=== PATIENT | male | born 1935 | race Caucasian/White ===

== ENCOUNTER 2016-09-19 11:06 | Inpatient (IN) | payer MEDICARE, BC ==
[~2016-09-19] VITALS: Ht 182.9 cm; Wt 98.9 kg
[2016-09-19] VITALS (10 sets, daily range): BP systolic 145–203; BP diastolic 76–114; PULSE 64–72; RESP 15–20; TEMP 97.9–99; O2SAT 93–98
[~2016-09-19 11:06] MED LIST: OMPR20CCR PO; ONDA1TAB16 PO; TRAM50 PO; WELL200T PO
--- NOTE | 2016-09-19 13:03 | PD ---
HPI Chief Complaint: Fall Stated Complaint: FALL/EVAC Time Seen by Provider: 13:03 Travel History International Travel<30 days: No Contact w/Intl Traveler<30days: No Known affected area: No History of Present Illness HPI 81-year-old male with history of hypotension, recurring syncopal episodes, currently being followed by Dr. Best presents to emergency department for evaluation following a syncopal episode. Patient was outside walking his dog when he passed out. Denies any preceding symptoms. No chest pain or tightness. No difficulty breathing. He states he does recall the fall. He did hit his face on the ground. He reports moderate facial pain. No headache. No nausea or vomiting. No focal deficits or weakness. Patient has no other symptoms to report. Patient's primary care provider is Dr. Jyoti Kimble. History Social History Alcohol Use: Yes (MIX DRINKS, BEER SOCIALLY) Tobacco Use: No Allergies-Medications (Allergen,Severity, Reaction): Coded Allergies: Cipro (Verified Allergy, Mild, 02/07/12) Reported Meds & Prescriptions Reported Meds & Active Scripts Active Ultram (Tramadol HCl) 50 Mg Tab 1 Tab PO Q6HPRN Zofran Tab (Ondansetron HCl) 4 Mg Tab 4 Mg PO Q6HPRN Reported Prilosec 20 Mg Cap (Omeprazole) 20 Mg Capcr 20 Mg PO DAILY Wellbutrin Sr (Bupropion HCl) 200 Mg Tab 100 Mg PO DAILY Review of Systems Except as stated in HPI: all other systems reviewed are Neg Physical Exam Narrative GENERAL: Well-nourished, well-developed elderly male patient, in no acute distress SKIN: Warm and dry. 2 cm Laceration to the right eyebrow, abrasion to the right forehead and abrasion to the bridge of nose. HEAD: Normocephalic. EYES: No scleral icterus. No injection or drainage. EOMI. PERRL ENT: Mucosa pink and moist. No erythema or exudates. No uvular edema. No uvular , palatal, or tonsillar deviation. Airway patent. Nasal turbinates appear normal without nasal blood, purulent drainage or septal hematoma. NECK: Supple, trachea midline. No JVD or lymphadenopathy. Cervical collar is in place. CARDIOVASCULAR: Regular rate and rhythm without murmurs, gallops, or rubs. RESPIRATORY: Breath sounds clear throughout, equal bilaterally. No accessory muscle use. GASTROINTESTINAL: Abdomen soft, non-tender, nondistended. MUSCULOSKELETAL: No cyanosis, or edema. Equal strength bilateral extremities. Sensation intact distal extremities. NEUROLOGICAL: Awake and alert. Cranial nerves II through XII intact. Motor and sensory grossly within normal limits. Five out of 5 muscle strength in all muscle groups. Normal speech. BACK: Nontender without obvious deformity. No CVA tenderness. Data Data Last Documented VS Vital Signs Date Time Temp Pulse Resp B/P Pulse Ox O2 Delivery O2 Flow Rate FiO2 09/19/16 11:08 99.0 72 18 145/84 95 Room Air Orders Complete Blood Count With Diff (09/19/16 13:00) Prothrombin Time / Inr (Pt) (09/19/16 13:00) Act Partial Throm Time (Ptt) (09/19/16 13:00) Urinalysis - C+S If Indicated (09/19/16 13:00) Chest, Single Ap (09/19/16 13:00) Ct Brain W/O Iv Contrast(Rout) (09/19/16 13:00) Ct Cerv Spine W/O Contrast (09/19/16 13:00) Ct Facial Bones W/O Iv Cont (09/19/16 13:00) Electrocardiogram (09/19/16 13:00) Ckmb (Isoenzyme) Profile (09/19/16 13:00) Troponin I (09/19/16 13:00) Basic Metabolic Panel (Bmp) (09/19/16 13:00) Remove Cervical Collar (09/19/16 14:00) CKMB (09/19/16 13:15) CKMB% (09/19/16 13:15) Labs Laboratory Tests Test 09/19/16 13:15 White Blood Count 11.0 TH/MM3 Red Blood Count 4.32 MIL/MM3 Hemoglobin 12.6 GM/DL Hematocrit 37.3 % Mean Corpuscular Volume 86.5 FL Mean Corpuscular Hemoglobin 29.3 PG Mean Corpuscular Hemoglobin 33.8 % Concent Red Cell Distribution Width 15.1 % Platelet Count 157 TH/MM3 Mean Platelet Volume 7.3 FL Neutrophils (%) (Auto) 79.1 % Lymphocytes (%) (Auto) 13.4 % Monocytes (%) (Auto) 6.3 % Eosinophils (%) (Auto) 0.8 % Basophils (%) (Auto) 0.4 % Neutrophils # (Auto) 8.7 TH/MM3 Lymphocytes # (Auto) 1.5 TH/MM3 Monocytes # (Auto) 0.7 TH/MM3 Eosinophils # (Auto) 0.1 TH/MM3 Basophils # (Auto) 0.0 TH/MM3 CBC Comment DIFF FINAL Differential Comment Prothrombin Time 10.6 SEC Prothromb Time International 1.0 RATIO Ratio Activated Partial 22.6 SEC Thromboplast Time Sodium Level 139 MEQ/L Potassium Level 3.9 MEQ/L Chloride Level 105 MEQ/L Carbon Dioxide Level 27.1 MEQ/L Anion Gap 7 MEQ/L Blood Urea Nitrogen 25 MG/DL Creatinine 1.41 MG/DL Estimat Glomerular Filtration 48 ML/MIN Rate Random Glucose 90 MG/DL Calcium Level 8.9 MG/DL Total Creatine Kinase 101 U/L Troponin I LESS THAN 0.02 NG/ML MDM Medical Decision Making Medical Screen Exam Complete: Yes Emergency Medical Condition: Yes Medical Record Reviewed: Yes Differential Diagnosis Intracranial hemorrhage versus concussion versus laceration superficial versus deep versus facial fracture versus syncope versus near-syncope versus electrolyte abnormality versus ACS Narrative Course 81-year-old male presents to emergency department for evaluation following a probable syncopal episode. Patient has obvious trauma to his face. Cervical collar is in place. Workup is initiated in the triage area. Last [address] 09/19/16 1300 Signed Impressions: Service Date/Time: Monday, September 19, 2016 13:16 - CONCLUSION: 1. Bilateral nasal bone fractures without significant displacement. Owen Salgado MD Head CT 09/19/16 1300 Signed Impressions: Service Date/Time: Monday, September 19, 2016 13:16 - CONCLUSION: 1. Small amount of interhemispheric subdural hemorrhage without mass effect or midline shift. 2. Right nasal bone fracture. Owen Salgado MD Cervical Spine CT 09/19/16 1300 Signed Impressions: Service Date/Time: Monday, September 19, 2016 13:16 - CONCLUSION: 1. There are postsurgical changes in the upper cervical spine. The patient is post laminectomy at C2/3 and C3/4. 2. The C5-6 level is fused. 3. There are degenerative changes throughout the cervical spine. There is no fracture seen. Candido Becerra MD CT imaging of the facial bones shows bilateral nasal bone fractures without significant displacement. CT imaging of the brain shows small amount of interhemispheric subdural hemorrhage without mass effect or midline shift. A right nasal bone fracture is also identified. I discussed the patient with Dr. Littlejohn, she requests pt be admitted to medicine and consult to neurosurgery. I spoke with Dr. Cherry, pt will be admitted to service Diagnosis Primary Impression: Syncopal episodes Qualified Code: R55 - Syncope, unspecified syncope type Additional Impressions: Subdural hemorrhage Nasal bone fractures Qualified Code: S02.2XXA - Closed fracture of nasal bone, initial encounter Eyebrow laceration Qualified Code: S01.111A - Eyebrow laceration, right, initial encounter Admitting Information Admitting Physician Requests: Admit Condition: Stable Sandra Montilla Sep 19, 2016 13:03
--- NOTE | 2016-09-19 13:35 | RADRPT ---
EXAM DATE/TIME: 09/19/2016 13:16 [facility] COMPARISON: No previous studies available for comparison. INDICATIONS : Trauma. Trip and fall. RADIATION DOSE: 19.82 CTDIvol (mGy) MEDICAL HISTORY : None SURGICAL HISTORY : None. ENCOUNTER: Initial ACUITY: 1 day PAIN SCALE: 2/10 LOCATION: neck TECHNIQUE: Volumetric scanning of the cervical spine was performed. Multiplanar reconstructions in the sagittal, coronal and oblique axial planes were performed. Using automated exposure control and adjustment o f the mA and/or kV according to patient size, radiation dose was kept as low as reasonably achievable to obtain optimal diagnostic quality images. FINDINGS: Thin section axial imaging of the cervical spine was performed. Sagittal and coronal imaging demonstrate a mild anterolisthesis of C3 relative to C4. There are degen erative discs throughout the cervical spine. The C5-6 level is fused.. C1/2: No acute bony abnormality identified. C2/3: There is a degenerated disc with minimal disc bulge. There is advanced facet arthritis on the right. The patient is post laminectomy. The thecal space and foramina are adequate. C3/4: There is advanced facet arthritis bilaterally. There is mild bony foraminal narrowing on the left. Th e thecal space is adequate. The patient is post laminectomy. C4/5: There is a degenerated disc with mild osteophytic ridging from the vertebral endplates. The residual thecal space and foramina are adequate. There is mild facet arthritis bilaterally. C5/6: This level is fused. The thecal space and neural foramina are adequate. C6/7: There is a degenerated disc with mild osteophytic ridging. This effaces the ventral thecal sac. The r esidual thecal space and foramina are adequate. C7/T1: The thecal space and neural foramina are adequate. There is mild facet arthritis bilaterally. CONCLUSION: 1. There are postsurgical changes in the upper cervical spine. The patient is post laminectomy at C2/ 3 and C3/4. 2. The C5-6 level is fused. 3. There are degenerative changes throughout the cervical spine. There is no fracture seen. Candido Becerra MD on September 19, 2016 at 13:29 Board Certified Radiologist. This report was verified electronically.
--- NOTE | 2016-09-19 13:36 | RADRPT ---
EXAM DATE/TIME: 09/19/2016 13:16 [facility] COMPARISON: No previous studies available for comparison. INDICATIONS : Trauma. Trip and fall. RADIATION DOSE: 39.21 CTDIvol (mGy) MEDICAL HISTORY : None SURGICAL HISTORY : None. ENCOUNTER: Initial ACUITY: 1 day PAIN SCALE: 2/10 LOCATION: cranial TECHNIQUE: Multiple contiguous axial images were obtained of the head. Using automated exposure control and adj ustment of the mA and/or kV according to patient size, radiation dose was kept as low as reasonably a chievable to obtain optimal diagnostic quality images. FINDINGS: There is an interhemispheric subdural hematoma, mostly posteriorly where it measures about 3 mm in di ameter. There is a focal acute hemorrhage more anteriorly that is spherical and measures about 11 mm in diameter. No intraparenchymal hemorrhage is identified. There is no mass effect or midline shift. No hydrocephalus. No recent infarct. Right frontal scalp swelling. Right nasal bone fracture. CONCLUSION: 1. Small amount of interhemispheric subdural hemorrhage without mass effect or midline shift. 2. Right nasal bone fracture. Owen Salgado MD on September 19, 2016 at 13:26 Board Certified Radiologist. This report was verified electronically.
[2016-09-19 13:43] LABS: AUTOMATED NEUTROPHIL # 8.7 TH/MM3 (1.8-7.7); BASOPHIL % 0.4 % (0.0-2.0); EOSINOPHIL # 0.1 TH/MM3 (0-0.4); EOSINOPHIL % 0.8 % (0.0-4.0); HEMATOCRIT 37.3 % (39.0-51.0); HEMO FLAGS DIFF FINAL; LYMPH % 13.4 % (9.0-44.0); LYMPHOCYTE # 1.5 TH/MM3 (1.0-4.8); MEAN CELL VOLUME 86.5 FL (80.0-100.0); MEAN CORPUSCULAR HEMOGLOBIN 29.3 PG (27.0-34.0); MEAN CORPUSCULAR HGB CONC 33.8 % (32.0-36.0); MONO % 6.3 % (0.0-8.0); NEUT % 79.1 % (16.0-70.0); PLATELET COUNT 157 TH/MM3 (150-450); RED BLOOD COUNT 4.32 MIL/MM3 (4.50-5.90); RED CELL DISTRIBUTION WIDTH 15.1 % (11.6-17.2)
--- NOTE | 2016-09-19 13:43 | RADRPT ---
EXAM DATE/TIME: 09/19/2016 13:16 [facility] COMPARISON: No previous studies available for comparison. INDICATIONS : Trauma. Trip and fall. Laceration above right eye. RADIATION DOSE: 72.32 CTDIvol (mGy) MEDICAL HISTORY : None SURGICAL HISTORY : None. ENCOUNTER: Initial ACUITY: 1 day PAIN SCORE: 4/10 LOCATION: Right facial TECHNIQUE: Volumetric scanning of the facial bones was performed. Using automated exposure control and adjustme nt of the mA and/or kV according to patient size, radiation dose was kept as low as reasonably achiev able to obtain optimal diagnostic quality images. FINDINGS: Bilateral nasal bone fractures are identified without significant displacement. There is right fronta l scalp swelling and laceration. Both globes intact. No fluid in the paranasal sinuses. CONCLUSION: 1. Bilateral nasal bone fractures without significant displacement. Owen Salgado MD on September 19, 2016 at 13:37 Board Certified Radiologist. This report was verified electronically.
[2016-09-19 13:50] LABS: APTT (PATIENT) 22.6 SEC (24.3-30.1); PROTHROMBIN TIME - PATIENT 10.6 SEC (9.8-11.6)
[2016-09-19 13:57] LABS: ANION GAP 7 MEQ/L (5-15); BICARBONATE 27.1 MEQ/L (21.0-32.0); BLOOD UREA NITROGEN 25 MG/DL (7-18); CHLORIDE 105 MEQ/L (98-107); GLOMERULAR FILTRATION RATE 48 ML/MIN (>89); POTASSIUM 3.9 MEQ/L (3.5-5.1); SODIUM (NA) 139 MEQ/L (136-145)
[2016-09-19 14:01] LABS: CREATINE KINASE 101 U/L (39-308)
--- NOTE | 2016-09-19 14:28 | RADRPT ---
EXAM DATE/TIME: 09/19/2016 13:34 [facility] COMPARISON: No previous studies available for comparison. INDICATIONS : Syncopal episode & fall. Facial trauma. MEDICAL HISTORY : Gastroesophageal reflux disease. SURGICAL HISTORY : Appendectomy. Cholecystectomy. Hernia repair. ENCOUNTER: Initial ACUITY: 1 day PAIN SCORE: 0/10 LOCATION: chest FINDINGS: A single view of the chest demonstrates the lungs to be symmetrically aerated without evidence of mas s, infiltrate or effusion. Minimal linear scarring or atelectasis at the bases. The cardiomediastina l contours are mildly prominent. Osseous structures are intact. CONCLUSION: 1. Minimal basilar atelectasis or scarring. Heart size upper limits normal. Mildly tortuous aorta. Owen Salgado MD on September 19, 2016 at 14:26 Board Certified Radiologist. This report was verified electronically.
[2016-09-19] MEDS ORDERED: LIDOCAINE 1%/EPINEPHrine 1:100,000 SOLN 20 ML VIAL INFIL ONE (14:30)
--- NOTE | 2016-09-19 14:46 | PD ---
Physical Exam Narrative GENERAL: Well-nourished, well-developed patient. SKIN: Warm and dry. HEAD: Normocephalic, laceration noted to forehead EYES: No injection or drainage. ENT: No nasal drainage noted. NECK: Supple, trachea midline. CARDIOVASCULAR: Regular rate and rhythm RESPIRATORY: no increased effort. No accessory muscle use. NEUROLOGICAL: Awake and alert. moves all extremities. Normal speech. Data Data Last Documented VS Vital Signs Date Time Temp Pulse Resp B/P Pulse Ox O2 Delivery O2 Flow Rate FiO2 09/19/16 11:08 99.0 72 18 145/84 95 Room Air 201/100 on recheck without meds, usually low, will hold treatment for now and control pain Orders Complete Blood Count With Diff (09/19/16 13:00) Prothrombin Time / Inr (Pt) (09/19/16 13:00) Act Partial Throm Time (Ptt) (09/19/16 13:00) Urinalysis - C+S If Indicated (09/19/16 13:00) Chest, Single Ap (09/19/16 13:00) Ct Brain W/O Iv Contrast(Rout) (09/19/16 13:00) Ct Cerv Spine W/O Contrast (09/19/16 13:00) Ct Facial Bones W/O Iv Cont (09/19/16 13:00) Electrocardiogram (09/19/16 13:00) Ckmb (Isoenzyme) Profile (09/19/16 13:00) Troponin I (09/19/16 13:00) Basic Metabolic Panel (Bmp) (09/19/16 13:00) Remove Cervical Collar (09/19/16 14:00) CKMB (09/19/16 13:15) CKMB% (09/19/16 13:15) Admit Order (Ed Use Only) (09/19/16 14:12) Consult Neurosurgery (09/19/16 ) Labs Laboratory Tests Test 09/19/16 13:15 White Blood Count 11.0 TH/MM3 Red Blood Count 4.32 MIL/MM3 Hemoglobin 12.6 GM/DL Hematocrit 37.3 % Mean Corpuscular Volume 86.5 FL Mean Corpuscular Hemoglobin 29.3 PG Mean Corpuscular Hemoglobin 33.8 % Concent Red Cell Distribution Width 15.1 % Platelet Count 157 TH/MM3 Mean Platelet Volume 7.3 FL Neutrophils (%) (Auto) 79.1 % Lymphocytes (%) (Auto) 13.4 % Monocytes (%) (Auto) 6.3 % Eosinophils (%) (Auto) 0.8 % Basophils (%) (Auto) 0.4 % Neutrophils # (Auto) 8.7 TH/MM3 Lymphocytes # (Auto) 1.5 TH/MM3 Monocytes # (Auto) 0.7 TH/MM3 Eosinophils # (Auto) 0.1 TH/MM3 Basophils # (Auto) 0.0 TH/MM3 CBC Comment DIFF FINAL Differential Comment Prothrombin Time 10.6 SEC Prothromb Time International 1.0 RATIO Ratio Activated Partial 22.6 SEC Thromboplast Time Sodium Level 139 MEQ/L Potassium Level 3.9 MEQ/L Chloride Level 105 MEQ/L Carbon Dioxide Level 27.1 MEQ/L Anion Gap 7 MEQ/L Blood Urea Nitrogen 25 MG/DL Creatinine 1.41 MG/DL Estimat Glomerular Filtration 48 ML/MIN Rate Random Glucose 90 MG/DL Calcium Level 8.9 MG/DL Total Creatine Kinase 101 U/L Creatine Kinase MB 1.1 NG/ML Troponin I LESS THAN 0.02 NG/ML MDM Supervised Visit with MANNY: Yes Interpretation(s) CBC & BMP Diagram 09/19/16 13:15 Last [address] 09/19/16 1300 Signed Impressions: Service Date/Time: Monday, September 19, 2016 13:16 - CONCLUSION: 1. Bilateral nasal bone fractures without significant displacement. Owen Salgado MD Head CT 09/19/16 1300 Signed Impressions: Service Date/Time: Monday, September 19, 2016 13:16 - CONCLUSION: 1. Small amount of interhemispheric subdural hemorrhage without mass effect or midline shift. 2. Right nasal bone fracture. Owen Salgado MD Chest X-Ray 09/19/16 1300 Signed Impressions: Service Date/Time: Monday, September 19, 2016 13:34 - CONCLUSION: 1. Minimal basilar atelectasis or scarring. Heart size upper limits normal. Mildly tortuous aorta. Owen Salgado MD Cervical Spine CT 09/19/16 1300 Signed Impressions: Service Date/Time: Monday, September 19, 2016 13:16 - CONCLUSION: 1. There are postsurgical changes in the upper cervical spine. The patient is post laminectomy at C2/3 and C3/4. 2. The C5-6 level is fused. 3. There are degenerative changes throughout the cervical spine. There is no fracture seen. Candido Becerra MD Narrative Course I, Dr. gregory, have reviewed the advance practice practitioner's documentation and am in agreement, met with the patient face to face, made the diagnosis, and the medical decision making was done by me. *My assessment and Findings: 81-year-old male presents with fall today with frequent history of falls. His blood pressure is usually low and initially it was low with the ambulance team. He will have workup ordered to assess syncope and fall Workup shows subdural and neurosurgery was contacted. Patient's blood pressure will be monitored given it is usually low and questions discussed with family Diagnosis Primary Impression: Syncopal episodes Qualified Code: R55 - Syncope, unspecified syncope type Additional Impressions: Nasal bone fractures Qualified Code: S02.2XXA - Closed fracture of nasal bone, initial encounter Subdural hemorrhage Eyebrow laceration Qualified Code: S01.111A - Eyebrow laceration, right, initial encounter Admitting Information Admitting Physician Requests: Admit Condition: Stable Jocy Gregory MD Sep 19, 2016 14:46
[2016-09-19 14:47] LABS: CKMB 1.1 NG/ML (0.5-3.6)
--- NOTE | 2016-09-19 15:01 | PD.CONS ---
HPI Service Neurosurgery Consult Requested By ED Reason for Consult SDH Primary Care Physician Archie Gonzalez MD History of Present Illness 81 yr old presents with a hx of falls, balance difficulties, presents after a fall while walking the dog. He was taken to the ED by EMS. GCS is 15 with a forehead laceration. He is followed by neurology Dr Fam and cardiology Dr Gonzalez for orthostatic hypotension and hypoglycemia. Ct of the head showed a falcine SDH Meds fludrocortisone 0.1, 2 tabs BID, clonazepam 1 mg qhs, sertroline 100 daily, kdur 30 meq BID, Review of Systems Constitutional: DENIES: Diaphoretic episodes, Fatigue, Fever, Weight gain, Weight loss, Chills, Dizziness, Change in appetite, Night Sweats Endocrine: DENIES: Heat/cold intolerance, Polydipsia, Polyuria, Polyphagia Eyes: DENIES: Blurred vision, Diplopia, Eye inflammation, Eye pain, Vision loss , Photosensitivity, Double Vision Ears, nose, mouth, throat: DENIES: Tinnitus, Hearing loss, Vertigo, Nasal discharge, Oral lesions, Throat pain, Hoarseness, Ear Pain, Running Nose, Epistaxis, Sinus Pain, Toothache, Odynophagia Gastrointestinal: DENIES: Abdominal pain, Black stools, Bloody stools, Constipation, Diarrhea, Nausea, Vomiting, Difficulty Swallowing, Anorexia Musculoskeletal: COMPLAINS OF: Joint Swelling (left shaulder), Neck pain Neurologic: COMPLAINS OF: Poor Balance Psychiatric: COMPLAINS OF: Depression Past Family Social History Allergies: Coded Allergies: Cipro (Verified Allergy, Mild, 02/07/12) Past Medical History Chronic renal insufficiency Orthostatic hypotension Depression Hypokalemia Past Surgical History 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 Cholecystectomy Prostate surgery Hypoglycemia Sleep disorder Family History father had lung CA, mother had dementia Social History , quit tobacco rare etoh Physical Exam Vital Signs Vital Signs Date Time Temp Pulse Resp B/P Pulse Ox O2 Delivery O2 Flow Rate FiO2 09/19/16 14:19 Room Air 09/19/16 14:19 71 15 203/114 98 Room Air 09/19/16 11:08 99.0 72 18 145/84 95 Room Air Physical Exam Alert and oriented x 3, EOMI, face symmetric, voice intact, field grossly full, pupils small, forehead laceration,no santos sign, speech fluent Motor 5/5 in both upper and lower extremities, No sensory level, no tremor, no neglect, No spasticity, reflexes are present, no clonus, no Bustos, no Babinski Laboratory Laboratory Tests Test 09/19/16 13:15 White Blood Count 11.0 Red Blood Count 4.32 Hemoglobin 12.6 Hematocrit 37.3 Mean Corpuscular Volume 86.5 Mean Corpuscular Hemoglobin 29.3 Mean Corpuscular Hemoglobin 33.8 Concent Red Cell Distribution Width 15.1 Platelet Count 157 Mean Platelet Volume 7.3 Neutrophils (%) (Auto) 79.1 Lymphocytes (%) (Auto) 13.4 Monocytes (%) (Auto) 6.3 Eosinophils (%) (Auto) 0.8 Basophils (%) (Auto) 0.4 Neutrophils # (Auto) 8.7 Lymphocytes # (Auto) 1.5 Monocytes # (Auto) 0.7 Eosinophils # (Auto) 0.1 Basophils # (Auto) 0.0 CBC Comment DIFF FINAL Differential Comment Prothrombin Time 10.6 Prothromb Time International 1.0 Ratio Activated Partial 22.6 Thromboplast Time Sodium Level 139 Potassium Level 3.9 Chloride Level 105 Carbon Dioxide Level 27.1 Anion Gap 7 Blood Urea Nitrogen 25 Creatinine 1.41 Estimat Glomerular Filtration 48 Rate Random Glucose 90 Calcium Level 8.9 Total Creatine Kinase 101 Creatine Kinase MB 1.1 Troponin I LESS THAN 0.02 Result Diagram: 09/19/16 1315 09/19/16 1315 Imaging Last Impressions Maxillofacial CT 09/19/16 1300 Signed Impressions: Service Date/Time: Monday, September 19, 2016 13:16 - CONCLUSION: 1. Bilateral nasal bone fractures without significant displacement. Owen Salgado MD Head CT 09/19/16 1300 Signed Impressions: Service Date/Time: Monday, September 19, 2016 13:16 - CONCLUSION: 1. Small amount of interhemispheric subdural hemorrhage without mass effect or midline shift. 2. Right nasal bone fracture. Owen Salgado MD Chest X-Ray 09/19/16 1300 Signed Impressions: Service Date/Time: Monday, September 19, 2016 13:34 - CONCLUSION: 1. Minimal basilar atelectasis or scarring. Heart size upper limits normal. Mildly tortuous aorta. Owen Salgado MD Cervical Spine CT 09/19/16 1300 Signed Impressions: Service Date/Time: Monday, September 19, 2016 13:16 - CONCLUSION: 1. There are postsurgical changes in the upper cervical spine. The patient is post laminectomy at C2/3 and C3/4. 2. The C5-6 level is fused. 3. There are degenerative changes throughout the cervical spine. There is no fracture seen. Candido Becerra MD Assessment and Plan Diagnosis: (1) Subdural hemorrhage Plan: We will follow the evolution of the bleed radiologically and obtain a rehab consult. His is worried about his ability to function at home. He already has had outpatient rehab but is still falling. Neurology evaluation may be helpful.MRI of the brain and C spine could not be located in [facility]. OT/PT ordered. Anticoagulation is to be avoided until healing of the SDH is confirmed. Pedro Luis Herman Sep 19, 2016 15:01
--- NOTE | 2016-09-19 15:14 | PD ---
Physical Exam Time Seen by Provider: 15:13 Narrative I was asked by Dr. Moyer to perform a laceration repair to his patient's right eyebrow and nasal bridge. For further details regarding the patient's visit please see the physician's documentation. Data Data Last Documented VS Vital Signs Date Time Temp Pulse Resp B/P Pulse Ox O2 Delivery O2 Flow Rate FiO2 09/19/16 11:08 99.0 72 18 145/84 95 Room Air Orders Complete Blood Count With Diff (09/19/16 13:00) Prothrombin Time / Inr (Pt) (09/19/16 13:00) Act Partial Throm Time (Ptt) (09/19/16 13:00) Urinalysis - C+S If Indicated (09/19/16 13:00) Chest, Single Ap (09/19/16 13:00) Ct Brain W/O Iv Contrast(Rout) (09/19/16 13:00) Ct Cerv Spine W/O Contrast (09/19/16 13:00) Ct Facial Bones W/O Iv Cont (09/19/16 13:00) Electrocardiogram (09/19/16 13:00) Ckmb (Isoenzyme) Profile (09/19/16 13:00) Troponin I (09/19/16 13:00) Basic Metabolic Panel (Bmp) (09/19/16 13:00) Remove Cervical Collar (09/19/16 14:00) CKMB (09/19/16 13:15) CKMB% (09/19/16 13:15) Admit Order (Ed Use Only) (09/19/16 14:12) Consult Neurosurgery (09/19/16 ) Labs Laboratory Tests Test 09/19/16 13:15 White Blood Count 11.0 TH/MM3 Red Blood Count 4.32 MIL/MM3 Hemoglobin 12.6 GM/DL Hematocrit 37.3 % Mean Corpuscular Volume 86.5 FL Mean Corpuscular Hemoglobin 29.3 PG Mean Corpuscular Hemoglobin 33.8 % Concent Red Cell Distribution Width 15.1 % Platelet Count 157 TH/MM3 Mean Platelet Volume 7.3 FL Neutrophils (%) (Auto) 79.1 % Lymphocytes (%) (Auto) 13.4 % Monocytes (%) (Auto) 6.3 % Eosinophils (%) (Auto) 0.8 % Basophils (%) (Auto) 0.4 % Neutrophils # (Auto) 8.7 TH/MM3 Lymphocytes # (Auto) 1.5 TH/MM3 Monocytes # (Auto) 0.7 TH/MM3 Eosinophils # (Auto) 0.1 TH/MM3 Basophils # (Auto) 0.0 TH/MM3 CBC Comment DIFF FINAL Differential Comment Prothrombin Time 10.6 SEC Prothromb Time International 1.0 RATIO Ratio Activated Partial 22.6 SEC Thromboplast Time Sodium Level 139 MEQ/L Potassium Level 3.9 MEQ/L Chloride Level 105 MEQ/L Carbon Dioxide Level 27.1 MEQ/L Anion Gap 7 MEQ/L Blood Urea Nitrogen 25 MG/DL Creatinine 1.41 MG/DL Estimat Glomerular Filtration 48 ML/MIN Rate Random Glucose 90 MG/DL Calcium Level 8.9 MG/DL Total Creatine Kinase 101 U/L Creatine Kinase MB 1.1 NG/ML Troponin I LESS THAN 0.02 NG/ML MDM Supervised Visit with MANNY: No Procedures Procedure Narrative LACERATION LOCATION: Nasal bridge LENGTH: 1 cm NUMBER OF STITCHES/MACHO: 2 sutures REPAIR: The area of the laceration was prepped with Betadine and sterilely draped. The laceration was infiltrated with 1% lidocaine with epinephrine. The wound was copiously irrigated and explored without evidence of foreign body , tendon injury or neurovascular injury. The wound was closed using 6. 0 Ethilon. This was a single layer repair. A sterile dressing was applied. The patient was advised to keep the dressing clean and dry. Patient tolerated the procedure well. LACERATION LOCATION: Right eyebrow LENGTH: 3 cm NUMBER OF STITCHES/MACHO: 7 sutures REPAIR: The area of the laceration was prepped with Betadine and sterilely draped. The laceration was infiltrated with 1% lidocaine with epinephrine. The wound was copiously irrigated and explored without evidence of foreign body , tendon injury or neurovascular injury. The wound was closed using 6. 0 Ethilon. This was a single layer repair. A sterile dressing was applied. The patient was advised to keep the dressing clean and dry. Patient tolerated the procedure well. Diagnosis Primary Impression: Syncopal episodes Qualified Code: R55 - Syncope, unspecified syncope type Additional Impressions: Nasal bone fractures Qualified Code: S02.2XXA - Closed fracture of nasal bone, initial encounter Subdural hemorrhage Eyebrow laceration Qualified Code: S01.111A - Eyebrow laceration, right, initial encounter Condition: Stable Kizzy Calles Sep 19, 2016 15:14
[2016-09-19] MEDS ORDERED: ACETAMINOPHEN 650 MG SUPP PR PRN (15:15)
[2016-09-19] MEDS ORDERED: DOCUSATE SODIUM 100 MG CAP PO PRN (15:15)
[2016-09-19] MEDS ORDERED: ONDANSETRON HCL 4 MG/2 ML VIAL IVP PRN (15:15)
[2016-09-19] MEDS ORDERED: NALOXONE HCL 0.4 MG/ML AMP IV PRN (15:15)
[2016-09-19] MEDS ORDERED: MAGNESIUM HYDROXIDE SUSP 30 ML CUP PO PRN (15:15)
[2016-09-19] MEDS ORDERED: SODIUM CHLORIDE 0.9% FLUSH 5 ML FLUSH IVF PRN (15:15)
[2016-09-19] MEDS ORDERED: SODIUM CHLORIDE 0.9% FLUSH 5 ML FLUSH FLUSH PRN (15:15)
[2016-09-19] MEDS: SODIUM CHLOR 0.9% 1000 ML INJ 1,000 ML IV SCH (15:21)
[2016-09-19] MEDS ORDERED: FLUD.1 PO (15:39)
[2016-09-19] MEDS ORDERED: CLON1 PO (15:39)
[2016-09-19] MEDS ORDERED: SERT-129 PO (15:39)
[2016-09-19] MEDS ORDERED: K-TA10TA PO (15:39)
--- NOTE | 2016-09-19 16:15 | EKG ---
Date Performed: 09/19/2016 Time Performed: 13:50:56 PTAGE: 81 years EKG: Sinus rhythm NORMAL ECG NO PREVIOUS TRACING DOCTOR: Stephan Phelps Interpretating Date/Time 09/19/2016 16:12:37
--- NOTE | 2016-09-19 16:24 | HHI.HP ---
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 Patient was brought in after he had a witnessed syncopal episode and passed out while walking his dog. Patient fell face forward, hit his face on the ground. He knew he was about to pass out, denies any dizziness , no palpitations, no chest pain, no shortness of breath. The bystander who witnessed fall, noted patient first tripped and she offered assistance which he refused. Right after that he fell. According to who is providing most details, patient has had poor balance and syncope and has had extensive evaluation by Dr. Arnold villalobos and varicella. He has had a cold, ultrasound, Holter monitoring, stress. The only thing they can attribute to the falls was that patient was noted with orthostatic hypotension with minimal changes. Patient has been on Florinef. He has received outpatient rehabilitation for balancing problems, currently he is not getting any therapy. endorses that Saturday patient was feeling a little shaky but did go and walk the dog as he usually does. 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 Prior to surgery, patient was not able to walk. They were told that this was a defect and that he still did have some residual cyst in place. During the course of the emergency room evaluation, patient had imaging studies. Maxillofacial CT showed bilateral nasal bone fractures without significant displacement. CT of the head showed a small amount of interhemispheric subdural hemorrhage without mass effect or midline shift and right nasal fracture. Cervical spine CT showed postsurgical changes in the upper cervical spine with postlaminectomy at C2-C3 C3-C4. C5-C6 is fused. No fractures were noted. Laboratory workup was remarkable for elevated creatinine,this doesn't appeared to be not a new finding. GFR is 48. CBC unremarkable. Blood pressure was noted elevated, up to 190s. Telemetry monitoring shows sinus rhythm. Laceration to the bridge of the nose and the right eyebrow where suture. Patient has received Vasotec to control blood pressure. Dr. Herman has evaluated the patient and recommends serial CT scanning to monitor bleeding. Recommend neurology consultation as well. Patient is admitted for further evaluation and treatment (Margot Ramos) Review of Systems Constitutional: DENIES: Diaphoretic episodes, Fatigue, Fever, Weight gain, Weight loss, Chills, Dizziness, Change in appetite, Night Sweats Endocrine: DENIES: Heat/cold intolerance, Polydipsia, Polyuria, Polyphagia Eyes: DENIES: Blurred vision, Diplopia, Eye inflammation, Eye pain, Vision loss , Photosensitivity, Double Vision Ears, nose, mouth, throat: DENIES: Tinnitus, Hearing loss, Vertigo, Nasal discharge, Oral lesions, Throat pain, Hoarseness, Ear Pain, Running Nose, Epistaxis, Sinus Pain, Toothache, Odynophagia Respiratory: DENIES: Apneas, Cough, Snoring, Wheezing, Hemoptysis, Sputum production, Shortness of breath Cardiovascular: COMPLAINS OF: Syncope, DENIES: Chest pain, Palpitations, Dyspnea on Exertion, PND, Lower Extremity Edema, Orthopnea, Claudication Gastrointestinal: DENIES: Abdominal pain, Black stools, Bloody stools, Constipation, Diarrhea, Nausea, Vomiting, Difficulty Swallowing, Anorexia Genitourinary: DENIES: Sexual dysfunction, Urinary frequency, Urinary incontinence, Urgency, Hematuria, Dysuria, Nocturia, Penile Discharge, Testicular Pain, Testicular Swelling Musculoskeletal: DENIES: Joint pain, Muscle aches, Stiffness, Joint Swelling, Back pain, Neck pain Integumentary: DENIES: Abnormal pigmentation, Nail changes, Pruritus, Rash Hematologic/lymphatic: DENIES: Bruising, Lymphadenopathy Immunologic/allergic: DENIES: Eczema, Urticaria Neurologic: COMPLAINS OF: Abnormal gait, Poor Balance, DENIES: Headache, Localized weakness, Paresthesias, Seizures, Speech Problems, Tremor Psychiatric: DENIES: Anxiety, Confusion, Mood changes, Depression, Hallucinations, Agitation, Suicidal Ideation, Homicidal Ideation, Delusions ( Margot Ramos) Past Family Social History Past Medical History History of syncope, weakness, has had extensive workup done per Dr. Breen and Dr. Patricio. Tentative diagnosis has been postural hypotension, patient is on Florinef. Patient has undergone dialysis rehabilitation. 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 Surgery was in [facility] in 1974. Prior to surgery, patient was unable to ambulate. Hernia surgery TURP Cholecystectomy Appendectomy Reported Medications Reported Meds & Active Scripts Active Reported K-Tab (Potassium Chloride) 10 Meq Tab 30 Meq PO BID Sertraline (Sertraline HCl) 100 Mg Tab 100 Mg PO DAILY Klonopin (Clonazepam) 1 Mg Tab 1 Mg PO HS Fludrocortisone (Fludrocortisone Acetate) 0.1 Mg Tab 0.2 Mg PO BID (Margot Ramos) Allergies: Coded Allergies: Cipro (Verified Allergy, Mild, 02/07/12) Active Ordered Medications Inpatient Medications Acetaminophen (Tylenol Supp) 650 mg Q4H PRN MA PAIN SCALE 1 TO 10; Start at 15:15 Acetaminophen (Tylenol) 650 mg Q4H PRN PO TEMP > 100.4; Start 09/19/16 at 15:15 Clonazepam (KlonoPIN) 1 mg HS PO ; Start 09/19/16 at 21:00 Docusate Sodium (Colace) 100 mg BID PRN PO CONSTIPATION; Start 09/19/16 at 15:15 Enalaprilat (Vasotec Inj) 1.25 mg Q6H PRN IV PUSH SBP>160, DBP>90; Start at 15:15 Fludrocortisone Acetate (Florinef) 0.2 mg BID PO ; Start 09/19/16 at 21:00 IV Flush (NS Flush) 2 ml BID FLUSH ; Start 09/19/16 at 21:00 Lidocaine/ Epinephrine 10 ml 10 ml ONCE ONCE INFIL Last administered on t 14:36; Start 09/19/16 at 14:30; Stop 09/19/16 at 14:32; Status DC Magnesium Hydroxide (Milk Of Magnesia Liq) 30 ml DAILY PRN PO Severe Constipation; Start 09/19/16 at 15:15 Naloxone HCl (Narcan Inj) 0.4 mg UNSCH PRN IV SEE LABEL COMMENTS; Start at 15:15 Ondansetron HCl (Zofran Inj) 4 mg Q6H PRN IVP NAUSEA OR VOMITING; Start at 15:15 Pantoprazole Sodium (Protonix) 40 mg DAILY PO ; Start 09/20/16 at 09:00 Potassium Chloride (KCl) 30 meq BID PO ; Start 09/19/16 at 21:00 Sertraline HCl (Zoloft) 100 mg DAILY PO ; Start 09/20/16 at 09:00 Sodium Chloride (NS 1000 ml Inj) 1,000 ml @ 70 mls/hr [id number] IV Last administered on 09/19/16t 15:21; Start 09/19/16 at 15:01 Family History Mother and father both . Both parents with history of CAD. Father with history of CHF and lung cancer. Social History Patient is retired, used to work in [employer]. , 3 grown children. Drinks alcohol socially, quit smoking 22 years ago, no illegal drug use. (Margot Ramos) Physical Exam Vital Signs Vital Signs Date Time Temp Pulse Resp B/P Pulse Ox O2 Delivery O2 Flow Rate FiO2 09/19/16 15:00 64 17 195/89 98 Room Air 09/19/16 14:19 Room Air 09/19/16 14:19 71 15 203/114 98 Room Air 09/19/16 11:08 99.0 72 18 145/84 95 Room Air Physical Exam GENERAL: This is a well-nourished, well-developed patient, in no apparent distress. SKIN: Abrasions noted to nose, legs. HEAD: Right periorbital swelling and bruising, laceration to right eyebrow. Abrasion to forehead and bridge of nose. . Normocephalic. No temporal or scalp tenderness. EYES: Pupils equal round and reactive. Extraocular motions intact. No scleral icterus. No injection or drainage. ENT: Nose swelling noted. Nose without bleeding, purulent drainage or septal hematoma. Throat without erythema, tonsillar hypertrophy or exudate. Uvula midline. Airway patent. NECK: Trachea midline. No JVD or lymphadenopathy. Supple, nontender, no meningeal signs. CARDIOVASCULAR: Regular rate and rhythm without murmurs, gallops, or rubs. RESPIRATORY: Clear to auscultation. Breath sounds equal bilaterally. No wheezes , rales, or rhonchi. GASTROINTESTINAL: Abdomen soft, non-tender, nondistended. No hepato-splenomegaly , or palpable masses. No guarding. MUSCULOSKELETAL: Extremities without clubbing, cyanosis, or edema. No joint tenderness, effusion, or edema noted. No calf tenderness. Negative Homans sign bilaterally. NEUROLOGICAL: Awake, oriented x 3. No focal deficits. Answering questions appropriately. Speech clear. Gait not tested. Laboratory Laboratory Tests Test 09/19/16 13:15 White Blood Count 11.0 Red Blood Count 4.32 Hemoglobin 12.6 Hematocrit 37.3 Mean Corpuscular Volume 86.5 Mean Corpuscular Hemoglobin 29.3 Mean Corpuscular Hemoglobin 33.8 Concent Red Cell Distribution Width 15.1 Platelet Count 157 Mean Platelet Volume 7.3 Neutrophils (%) (Auto) 79.1 Lymphocytes (%) (Auto) 13.4 Monocytes (%) (Auto) 6.3 Eosinophils (%) (Auto) 0.8 Basophils (%) (Auto) 0.4 Neutrophils # (Auto) 8.7 Lymphocytes # (Auto) 1.5 Monocytes # (Auto) 0.7 Eosinophils # (Auto) 0.1 Basophils # (Auto) 0.0 CBC Comment DIFF FINAL Differential Comment Prothrombin Time 10.6 Prothromb Time International 1.0 Ratio Activated Partial 22.6 Thromboplast Time Sodium Level 139 Potassium Level 3.9 Chloride Level 105 Carbon Dioxide Level 27.1 Anion Gap 7 Blood Urea Nitrogen 25 Creatinine 1.41 Estimat Glomerular Filtration 48 Rate Random Glucose 90 Calcium Level 8.9 Total Creatine Kinase 101 Creatine Kinase MB 1.1 Troponin I LESS THAN 0.02 (Margot Ramos) Result Diagram: 09/19/16 1315 09/19/16 1315 Imaging Last Impressions Maxillofacial CT 09/19/16 1300 Signed Impressions: Service Date/Time: Monday, September 19, 2016 13:16 - CONCLUSION: 1. Bilateral nasal bone fractures without significant displacement. Owen Salgado MD Head CT 09/19/16 1300 Signed Impressions: Service Date/Time: Monday, September 19, 2016 13:16 - CONCLUSION: 1. Small amount of interhemispheric subdural hemorrhage without mass effect or midline shift. 2. Right nasal bone fracture. Owen Salgado MD Chest X-Ray 09/19/16 1300 Signed Impressions: Service Date/Time: Monday, September 19, 2016 13:34 - CONCLUSION: 1. Minimal basilar atelectasis or scarring. Heart size upper limits normal. Mildly tortuous aorta. Owen Salgado MD Cervical Spine CT 09/19/16 1300 Signed Impressions: Service Date/Time: Monday, September 19, 2016 13:16 - CONCLUSION: 1. There are postsurgical changes in the upper cervical spine. The patient is post laminectomy at C2/3 and C3/4. 2. The C5-6 level is fused. 3. There are degenerative changes throughout the cervical spine. There is no fracture seen. Candido Becerra MD (Margot Ramos) Assessment and Plan Problem List: (1) Subdural hemorrhage (2) Syncopal episodes (3) Uncontrolled hypertension (4) Eyebrow laceration (5) Nasal bone fractures (6) hx of prior brain surgery for benign tumor removal (7) CKD (chronic kidney disease) stage 3, GFR 30-59 ml/min (8) Postural hypotension Assessment and Plan Admit to Dr. Cherry 81 year old male with hx of syncope, postural hypotension admitted after having a syncopal episode while walking dog, evaluated in emergency room, CT findings of the small interhemispheric subdural hemorrhage without mass effect. Neurologically intact. -Patient will be admitted to the intensive care unit Neuro checks per protocol Neurosurgery consultation, has been evaluated, recommend serial CT to monitor bleeding Consult neurology as well as cardiology -Maintain on bedrest -Controlled blood pressure, keep systolic at 150 or less. Uncontrolled HTN. Blood pressure is usually low, history of posterior hypotension, on Florinef. -Control BP, keep at 150 or less -Vasotec PRN -If Blood rressure not controlled patient may need Cardene drip Chronic kidney disease stage III, patient unaware of history, appears stable Continue with hydration, BMP in the morning Prior history of brain cyst removal -Monitor Home medications reviewed, initiated as indicated Avoid anticoagulation, SCDs for DVT prophylaxis PPI for GI prophylaxis Plan of care has been discussed with the patient and , their questions have been answered in detail. Plan of care discussed with attending and registered nurse. Further management of the patient will be dependent on the hospital course This patient was seen by myself and Dr. Cherry, this H&P is written on his behalf (Margot Ramos) Assessment and Plan pt seen and examined as above with family at bedside in ER labs and rad data reviewed meds reviewd chart reviewed plan of care kelly ragsdale dw pt and family at bedside (Chace Cherry MD) Physician Certification 2 Midnight Certification Type: Admission for Inpatient Services Order for Inpatient Services The services are ordered in accordance with Medicare regulations or non- Medicare payer requirements, as applicable. In the case of services not specified as inpatient-only, they are appropriately provided as inpatient services in accordance with the 2-midnight benchmark. Estimated LOS (days): 2 2 days is the estimated time the patient will need to remain in the hospital, assuming treatment plan goals are met and no additional complications. Post-Hospital Plan: Not yet determined (Margot Ramos) Problem Qualifiers (1) Syncopal episodes: Qualified Code: R55 - Syncope, unspecified syncope type (2) Eyebrow laceration: Qualified Code: S01.111A - Eyebrow laceration, right, initial encounter (3) Nasal bone fractures: Qualified Code: S02.2XXA - Closed fracture of nasal bone, initial encounter Mragot Ramos Sep 19, 2016 16:24 Chace Cherry MD Sep 19, 2016 19:09
[2016-09-19] MEDS: ENALAPRILAT 1.25 MG/ML VIAL IV PUSH PRN (16:25)
[2016-09-19 17:55] LABS: BLOOD, URINE SMALL (NEG); COMMENT (UR) CULT NOT INDICATED; CULTURE IF INDICATED CULT NOT INDICATED; GLUCOSE,URINE NEG (NEG); KETONE, URINE NEG (NEG); MUCUS URINE FEW /lpf (OCC); NITRITE,URINE NEG (NEG); PH, URINE 6.5 (5.0-8.5); SQUAMOUS EPITHELIAL CELL URINE <1 /hpf (0-5); URINE COLOR YELLOW (YELLW/STRAW)
[2016-09-19] MEDS: POTASSIUM CHLORIDE 10 MEQ CONTROLLED RELEASE TAB PO SCH ×2 (20:18→20:43)
[2016-09-19] MEDS: SODIUM CHLORIDE 0.9% FLUSH 5 ML FLUSH FLUSH SCH (20:18)
[2016-09-19] MEDS: ACETAMINOPHEN 325 MG TAB PO PRN (20:18)
[2016-09-19] MEDS: clonazePAM 1 MG TAB PO SCH (20:18)
[2016-09-19] MEDS ORDERED: SODIUM CHLORIDE 0.9% FLUSH 5 ML FLUSH IVF SCH (21:00)
[2016-09-19] MEDS ORDERED: FLUDROCORTISONE ACETATE 0.1 MG TAB PO SCH ×2 (21:00)
[2016-09-19] MEDS ORDERED: CHLORHEXIDINE GLUCONATE 2 % 1 PACK (2 CLOTHS)(extra cloths) TOP PRN (21:00)
[2016-09-19] MEDS ORDERED: clonazePAM 1 MG TAB PO SCH (21:00)
[2016-09-20] VITALS (14 sets, daily range): BP systolic 137–186; BP diastolic 73–96; PULSE 63–78; RESP 15–26; TEMP 98.2–98.7; O2SAT 93–99
[2016-09-20] MEDS: CHLORHEXIDINE GLUCONATE 2 % 1 PACK (2 CLOTHS)(taper/protocol) TOP SCH (04:00)
[2016-09-20 05:06] LABS: AUTOMATED NEUTROPHIL # 6.6 TH/MM3 (1.8-7.7); BASOPHIL # 0.1 TH/MM3 (0-0.2); BASOPHIL % 0.6 % (0.0-2.0); EOSINOPHIL # 0.1 TH/MM3 (0-0.4); EOSINOPHIL % 1.4 % (0.0-4.0); HEMATOCRIT 33.4 % (39.0-51.0); LYMPH % 17.8 % (9.0-44.0); LYMPHOCYTE # 1.7 TH/MM3 (1.0-4.8); MEAN CELL VOLUME 86.7 FL (80.0-100.0); MEAN CORPUSCULAR HEMOGLOBIN 30.1 PG (27.0-34.0); MEAN CORPUSCULAR HGB CONC 34.7 % (32.0-36.0); MONO % 10.4 % (0.0-8.0); NEUT % 69.8 % (16.0-70.0); PLATELET COUNT 134 TH/MM3 (150-450); RED BLOOD COUNT 3.85 MIL/MM3 (4.50-5.90); WHITE BLOOD COUNT 9.5 TH/MM3 (4.0-11.0)
[2016-09-20] MEDS: SODIUM CHLOR 0.9% 1000 ML INJ 1,000 ML IV SCH (05:08)
[2016-09-20 05:15] LABS: HEMO FLAGS AUTO DIFF
[2016-09-20 05:22] LABS: BICARBONATE 27.1 MEQ/L (21.0-32.0); POTASSIUM 3.7 MEQ/L (3.5-5.1)
[2016-09-20] MEDS: ACETAMINOPHEN 325 MG TAB PO PRN ×3 (06:48→23:28)
--- NOTE | 2016-09-20 06:49 | RADRPT ---
EXAM DATE/TIME: 09/20/2016 06:31 [place] COMPARISON: CT BRAIN W/O CONTRAST, September 19, 2016, 13:16. INDICATIONS : Follow up bleed. RADIATION DOSE: 46.00 CTDIvol (mGy) MEDICAL HISTORY : None SURGICAL HISTORY : cyst removed from neck/spinal cord. ENCOUNTER: Subsequent ACUITY: 2 days PAIN SCALE: Non-responsive LOCATION: cranial TECHNIQUE: Multiple contiguous axial images were obtained of the head. Using automated exposure control and adj ustment of the mA and/or kV according to patient size, radiation dose was kept as low as reasonably a chievable to obtain optimal diagnostic quality images. FINDINGS: The inner hemispheric subdural hemorrhage is less pronounced on the current study. No new site of hem orrhage observe. Atrophy noted. Mild ventriculomegaly is stable. No mass or infarction. Paranasal sin uses and mastoid air cells are clear. Calvarium is intact. CONCLUSION: Improvement in the subdural interhemispheric blood. No new hemorrhage observe. Judd Sheets Jr., MD on September 20, 2016 at 6:45 Board Certified Radiologist. This report was verified electronically.
[2016-09-20] MEDS: ENALAPRILAT 1.25 MG/ML VIAL IV PUSH PRN ×2 (07:11→12:25)
[2016-09-20 07:23] LABS: BANDS 7 % (0-6); BASOPHILS 1 % (0-2); NEUTROPHIL # MANUAL DIFF 7.3 TH/MM3 (1.8-7.7); POLYS (SEG NEUTROPHILS) 70 % (16-70); WBC DIFF SAMPLE 100
[2016-09-20 07:24] LABS: PLATELET ESTIMATE SMEAR LOW (NORMAL); PLATELET MORPHOLOGY NORMAL (NORMAL); SCAN/DIFF FINAL DIFF MANUAL
--- NOTE | 2016-09-20 07:36 | HHI.NSPN ---
Subjective History Day1 after fall, falcine SDH, improved on Ct and on exam today. He is alert and ready to start rehab Vitals . Vital Signs Date Time Temp Pulse Resp B/P Pulse Ox O2 Delivery O2 Flow Rate FiO2 09/20/16 06:00 67 09/20/16 04:00 63 09/20/16 04:00 98.7 63 16 179/80 94 09/20/16 02:00 75 09/20/16 00:00 98.6 63 15 141/73 95 09/20/16 00:00 63 09/19/16 22:00 65 09/19/16 21:20 93 21 09/19/16 20:00 98.4 68 16 169/76 95 09/19/16 20:00 69 09/19/16 18:18 97 21 09/19/16 18:00 98.0 72 20 186/88 97 09/19/16 17:10 68 16 171/93 98 Room Air 09/19/16 16:26 97.9 64 17 187/91 97 Room Air 09/19/16 15:00 64 17 195/89 98 Room Air 09/19/16 14:19 Room Air 09/19/16 14:19 71 15 203/114 98 Room Air 09/19/16 11:08 99.0 72 18 145/84 95 Room Air 09/19/16 09/19/16 09/20/16 15:00 23:00 07:00 Intake Total 751 ml 389 ml Output Total 600 ml Balance 751 ml -211 ml Physical Exam Head Head: Abrasions (facial ecchymosis) Eyes Eyes: Pupils Equal Neuro Mental Status: Oriented x 3 Speech: Clear Shanika Coma Scale Best Eye Openin - Spontaneous Best Verbal: 5 - Oriented Best Motor: 6 - Obeys Total Glascow Coma Scale (GCS): 15 Sensation: Intact Cardiac Cardiac: Regular Rate & Rhythm Musculoskeletal Extremities Upper Extremities Deltoid Bicep Tricep HI W. Ext Right Left Lower Extremeties Ilio Quad Plantar Dorsi EHL Right Left Musculoskeletal Remarks No drift, no focal weakness but poor dexterity; able to perform finger to nose and heel to armendariz bilaterally with good accuracy, no new weakness or numbness, no vertigo with sitting. No Bustos or Babinski sign, no clonus Objective Labs Last Impressions Maxillofacial CT 09/19/16 1300 Signed Impressions: Service Date/Time: Monday, September 19, 2016 13:16 - CONCLUSION: 1. Bilateral nasal bone fractures without significant displacement. Owen Salgado MD Head CT 09/19/16 1300 Signed Impressions: Service Date/Time: Monday, September 19, 2016 13:16 - CONCLUSION: 1. Small amount of interhemispheric subdural hemorrhage without mass effect or midline shift. 2. Right nasal bone fracture. Owen Salgado MD Chest X-Ray 09/19/16 1300 Signed Impressions: Service Date/Time: Monday, September 19, 2016 13:34 - CONCLUSION: 1. Minimal basilar atelectasis or scarring. Heart size upper limits normal. Mildly tortuous aorta. Owen Salgado MD Cervical Spine CT 09/19/16 1300 Signed Impressions: Service Date/Time: Monday, September 19, 2016 13:16 - CONCLUSION: 1. There are postsurgical changes in the upper cervical spine. The patient is post laminectomy at C2/3 and C3/4. 2. The C5-6 level is fused. 3. There are degenerative changes throughout the cervical spine. There is no fracture seen. Candido Becerra MD Laboratory Tests 09/19/16 13:15 09/20/16 04:00 09/20/16 04:08 Laboratory Tests Test 09/19/16 09/20/16 13:15 04:00 Sodium Level 139 MEQ/L 140 MEQ/L Potassium Level 3.9 MEQ/L 3.7 MEQ/L Chloride Level 105 MEQ/L 105 MEQ/L Carbon Dioxide Level 27.1 MEQ/L 27.1 MEQ/L Anion Gap 7 MEQ/L 8 MEQ/L Blood Urea Nitrogen 25 MG/DL 21 MG/DL Creatinine 1.41 MG/DL 1.10 MG/DL Estimat Glomerular Filtration 48 ML/MIN 65 ML/MIN Rate Random Glucose 90 MG/DL 88 MG/DL Calcium Level 8.9 MG/DL 8.5 MG/DL Phosphorus Level 2.1 MG/DL Magnesium Level 2.0 MG/DL Total Creatine Kinase 101 U/L Creatine Kinase MB 1.1 NG/ML Troponin I LESS THAN 0.02 NG/ML Assessment & Plan Diagnosis: (1) Subdural hemorrhage Plan: Head CT this am shows improved falcine SDH; His is worried about his ability to function at home. He already has had outpatient rehab but is still falling. Neurology evaluation may be helpful.MRI of the brain and C spine could not be located in [facility] and have been ordered for new baseline here at [place]. OT/PT ordered. Anticoagulation is to be avoided until healing of the SDH is confirmed. He can transfer to the floor. Critical Care Time (minutes): 10 Pedro Luis Herman Sep 20, 2016 07:36
[2016-09-20] MEDS: SERTRALINE HCL 100 MG TAB PO SCH (08:30)
[2016-09-20] MEDS: PANTOPRAZOLE SOD 40 MG DELAYED RELEASE TAB PO SCH (08:30)
[2016-09-20] MEDS: POTASSIUM CHLORIDE 10 MEQ CONTROLLED RELEASE TAB PO SCH ×4 (08:31→19:56)
[2016-09-20] MEDS: SODIUM CHLORIDE 0.9% FLUSH 5 ML FLUSH FLUSH SCH ×2 (08:31→19:56)
--- NOTE | 2016-09-20 08:34 | MB ---
cc: YOLI ROBERT M.D. DATE OF CONSULTATION 09/20/2016 REASON FOR CONSULTATION Status post fall with head trauma. HISTORY Mr. Godfrey is a 81-year-old white gentleman well-known to me with a history of chronic progressive orthostatic hypotension which has undergone successful treatment with Florinef. The patient was doing reasonably well from that standpoint up until yesterday when he was walking his dog and lost his balance. He recalls the entire episode and does not feel he lost consciousness, but he fell to the ground and hit his face and head. He was taken to the hospital and admitted and found to have a subdural hematoma. That has been stable since arrival yesterday. Neurosurgery is evaluating that. He otherwise denies any cardiovascular symptoms. He denies chest pains or shortness of breath. He has been taking all his medications as directed. MEDICATIONS 1. Protonix 40 mg daily 2. Zoloft 100 mg daily 3. Potassium supplements 30 mEq q12h 4. Tylenol p.r.n. 5. Fludrocortisone was discontinued since admit. He was on 0.2 mg p.o. b.i.d. at home with potassium supplements 30 mEq b.i.d. ALLERGIES NITROFURANTOIN, CIPRO, ASHIA. PAST MEDICAL HISTORY 1. Abdominal aortic aneurysm 2. low blood pressure and orthostatic hypotension 3. Chronic kidney disease 4. Headaches 5. Prostate disease 6. Vertigo 7. Neurocentric cyst 8. Denies history of myocardial infarction, heart failure, stroke, TIA, pulmonary, gastrointestinal, or liver disease. PAST SURGICAL HISTORY 1. Neurocentric cyst removed 2. Laminectomy January 1978 3. Appendectomy January 2000 4. Laparoscopic cholecystectomy December 2005. 5. Herniorrhaphy June 2009 6. TUR prostate 2011 FAMILY HISTORY Father of lung cancer and heart failure in 1997 at age 80. HISTORY OF PRESENT ILLNESS Mother with dementia and congestive heart failure at age 85. Sister age 68 with supranuclear palsy. SOCIAL HISTORY The patient and was a cigarette smoker one to two packs per week for 38 years, quit in 1993. Consumes one to two beers or whiskeys once a week. Denies any illicit drug use. living with his . Retired from the insurance industry. Tries to walk or go to physical therapy a few days a week for exercise. REVIEW OF SYSTEMS Denies lower extremity edema or claudication. Denies any actual syncope recently. Denies fevers, chills, night sweats, nausea, vomiting, diarrhea. Denies any exertional or resting chest discomfort, orthopnea or PND type symptoms. Denies bleeding or clotting disorders. Except for that mentioned in the HPI, this complete 12-point review of systems is otherwise negative. PHYSICAL EXAM Physical exam reveals a 81-year-old white gentleman lying in bed in no distress. VITAL SIGNS: Blood pressure 179/80 mmHg, heart rate 67 and regular, respiratory rate 16, temperature 98.7, oxygen saturation 94% on room air. HEAD: Head is normocephalic. There is ecchymosis noted over the forehead and right temporal regions and right eye. NECK: The neck is supple. There is no adenopathy. No jugular venous distension at 45 degrees. Carotid upstrokes are normal. There are no bruits. Thyroid exam is normal. LUNGS: Clear. HEART: PMI is not displaced. S1-S2 normal. No murmurs, gallops, clicks or rubs. ABDOMEN: Benign. EXTREMITIES: No cyanosis, clubbing or edema. Perfusion is adequate in the upper and lower extremities. There are no femoral bruits. EKG from admission yesterday shows a sinus rhythm and is within normal limits. Chest x-ray minimal basilar atelectasis or scarring. Heart size upper limits of normal. Mildly tortuous aorta. Head CT from this morning shows improvement in subdural interhemispheric blood. No new hemorrhage. LABORATORY DATA CBC, his white count 9.5, hemoglobin 11.6, platelet count 134,000. Chemistries are normal with a potassium 3.7, sodium 140, BUN 21, creatinine 1.1, magnesium is 2.0, calcium 8.5. Troponin I less than 0.02, CPK 101, CPK-MB 1.1. Coags were normal. IMPRESSION 1. Status post fall with head injury and subdural hematoma, currently stable. 2. History of progressive orthostatic hypotension. 3. Balance disorder. 4. History of AAA. 5. Family history of CAD. RECOMMENDATIONS From a cardiac standpoint, I think he just needs to be restarted on his Florinef 0.2 mg p.o. b.i.d. and his potassium supplements as he was taking at home. He was quite stable on that regimen. It is unclear whether he had an orthostatic episode yesterday or just a balance problem which he has also been experiencing. I discussed the case in detail with neurosurgery and plans are to transfer him to inpatient [facility] for a brief period of time before going back home. I will follow him with you as needed here. I thank you for allowing me to participate in the care of this patient. MD PILAR Wnag/MICHAEL /7:56 AM /8:14 AM ALEC
[2016-09-20] MEDS ORDERED: SERTRALINE HCL 100 MG TAB PO SCH (09:00)
[2016-09-20] MEDS ORDERED: cloNIDine HCL 0.1 MG TAB PO ONE (11:45)
--- NOTE | 2016-09-20 12:12 | RADRPT ---
EXAM DATE/TIME: 09/20/2016 11:38 [facility] COMPARISON: CT BRAIN W/O CONTRAST, September 19, 2016, 13:16. CT BRAIN W/O CONTRAST, September 20, 2016, 6:31. INDICATIONS : Frequent falls. MEDICAL HISTORY : Hypertension. Prostate disease. SURGICAL HISTORY : Cholecystectomy. Appendectomy. Hernia repair. Laminectomy. ENCOUNTER: Subsequent ACUITY: 2 day PAIN SCORE: 0/10 LOCATION: head. TECHNIQUE: Multiplanar, multisequence MRI of the brain was performed without contrast. FINDINGS: CEREBRUM: There is cerebral atrophy. The ventricles are normal for age. No evidence of midline shift, mass les ion, hemorrhage or acute infarction. No extraaxial fluid collections are seen. The pituitary gland and suprasellar cistern are normal in configuration. WHITE MATTER: A few scattered foci of bright T2 signal abnormalities are seen in the white matter. POSTERIOR FOSSA: The cerebellum and brainstem are intact. The 4th ventricle is midline. The cerebellopontine angle is unremarkable. The cerebellar tonsils are normal in position. DIFFUSION IMAGING: No focal areas of restricted diffusion are seen. No evidence of acute infarction. EXTRACRANIAL: The visualized portions of the orbits and paranasal sinuses are unremarkable. CONCLUSION: 1. Cerebral atrophy. 2. Minimal chronic ischemic small vessel vasculopathy. 3. The previously identified hemorrhage appears to have resolved. Angel Mcdonald MD on September 20, 2016 at 12:07 Board Certified Radiologist. This report was verified electronically.
--- NOTE | 2016-09-20 13:51 | MB ---
cc: DILLON BANUELOS M.D. DATE OF CONSULTATION 09/20/2016 REASON FOR CONSULTATION This is a 81-year-old man seen in neurological consultation in regards to a syncopal episode. HISTORY The patient was admitted yesterday when he was walking his dog and came to the emergency room around 01:00 p.m. He reportedly lost his balance or tripped on something and fell. He does not think he lost consciousness, but he is not quite aware of a couple of minimal events. Apparently someone witnessed the fall and asked to assist him, but he declined and he does not remember this. There is a history of some recent difficulty with balance and falls. He has a history of some sort of surgery in 1977. 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 He was told that it was an unusual cyst and it was not completely removed. He was followed by apparent neurosurgery with MRIs on multiple occasions. Apparently he had some recent imaging studies of the spine as well. He has a history of hypertension. MEDICATIONS His medications included: 1. Zoloft 100 mg a day 2. Potassium tablets 3. Clonazepam 4. Fludrocortisone 5. I believe he was also taking Vasotec. NEUROLOGICAL EXAM: The neurologic exam showed an alert, pleasant man. He is oriented. He feels he is ready to be discharged as he feels he does not belong here at this point. Ocular movements were full. Visual mello full. He has right frontal orbital bruising and stitching from this injury with some ecchymosis, but he is able to move the eyes normally and able to count fingers normally in all visual mello. His speech was clear. No aphasia. He has a good director radiation oncology and [id number] testing is normal. He moves the lower extremities well on the bedside exam. Reflexes are present at the elbows and knees, trace to absent at the ankles and plantar responses flexor. MRI of the brain and CT brain indicates a resolved small inter-hemisphere subdural hematoma. MRI of the cervical spine shows he is status post laminectomy around C2-C3 with cystic areas in the canal with minimal pressure on the spinal cord. It appears the MRI of the cervical spine was done without contrast and no results yet. ASSESSMENT Syncopal episode, presumably postural hypotension. Apparently he has had some problems with balance. I am going to check an EEG on him as well. A resolved inter-hemisphere subdural hematoma, small. Neurosurgery is following Cystic lesion C3 level. MRI cervical spine results pending. Neurosurgery following. Apparent recent MRI cervical spine done. He is followed elsewhere for this and this lesion does not appear unstable at this point. Therefore, we will request an EEG. No further indication of seizures. I will follow the neurological course. Thank you for asking us to assist in his care. MD CODY Martinez/MICHAEL /1:28 PM /1:40 PM
--- NOTE | 2016-09-20 14:34 | RADRPT ---
EXAM DATE/TIME: 09/20/2016 11:38 COMPARISON: [facility] [place] CERVICAL SPINE W/O CONTRAST, September 19, 2016, 13:16. Multiple previous outside comparison ex ams, most recently February 27, 2016 from [facility]. INDICATIONS : Pain after fall. MEDICAL HISTORY : Hypertension. Prostate disease. SURGICAL HISTORY : Cholecystectomy. Appendectomy. Hernia repair. Laminectomy. ENCOUNTER: Subsequent ACUITY: 2 day PAIN SCORE: 2/10 LOCATION: neck. TECHNIQUE: Multiplanar, multisequence MRI examination of the cervical spine was performed. FINDINGS: There is stable slight anterolisthesis of C3 relative to C4 and slight retrolisthesis of C4 relative to C5. C5 and 6 are fused. There is no evidence of fracture. Marrow signal is benign throughout. Prev ious laminectomies at C2, C3 and C4. Small dorsal pseudomeningocele which is unchanged just right of midline posterior to C2-3 disc space level. The C3 level, an ovoid CSF signal mass or collection abut s the midline ventral cervical cord. This lesion measures about 19 x 7 mm (long axis by short axis) a nd is unchanged. There is very slight stable deformity of the cord associated with this lesion. No ab normal intrinsic signal within the cord. The cord is elsewhere normal. There is broad mild dorsal disc protrusion at C3-4 with minimal indentation of the ventral thecal sac . Mild broad and slightly right paracentral disc osteophyte at C4-5 with minimal indentation of the t hecal sac. Broad mild dorsal disc protrusion at C6-7 minimally indenting ventral thecal sac. CONCLUSION: Stable MR appearance of the cervical spine with no evidence of acute traumatic injury or other acute process. Buster Qureshi MD on September 20, 2016 at 14:16 Board Certified Radiologist. This report was verified electronically.
--- NOTE | 2016-09-20 15:46 | HHI.PR ---
Subjective Remarks Patient is some mild headache near the trauma site No nausea vomiting No visual problems No chest pain or shortness of breath Review of systems a 12 point system otherwise unremarkable Objective Objective Results - Vital Signs Date Time Temp Pulse Resp B/P Pulse Ox O2 Delivery O2 Flow Rate FiO2 09/20/16 12:06 99 21 09/20/16 06:00 67 09/20/16 04:00 63 09/20/16 04:00 98.7 63 16 179/80 94 09/20/16 02:00 75 09/20/16 00:00 98.6 63 15 141/73 95 09/20/16 00:00 63 09/19/16 22:00 65 09/19/16 21:20 93 21 09/19/16 20:00 98.4 68 16 169/76 95 09/19/16 20:00 69 09/19/16 18:18 97 21 09/19/16 18:00 98.0 72 20 186/88 97 09/19/16 17:10 68 16 171/93 98 Room Air 09/19/16 16:26 97.9 64 17 187/91 97 Room Air I/O 09/19/16 09/19/16 09/19/16 09/20/16 09/20/16 09/20/16 07:00 15:00 23:00 07:00 15:00 23:00 Intake Total 751 ml 389 ml Output Total 600 ml Balance 751 ml -211 ml Intake Oral 240 ml 0 ml IV Total 511 ml 389 ml Output Urine Total 600 ml # Voids 1 # Bowel Movements 0 Result Diagram: 09/20/16 0408 09/20/16 0400 Imaging Last Impressions Maxillofacial CT 09/19/16 1300 Signed Impressions: Service Date/Time: Monday, September 19, 2016 13:16 - CONCLUSION: 1. Bilateral nasal bone fractures without significant displacement. Owen Salgado MD Head CT 09/19/16 1300 Signed Impressions: Service Date/Time: Monday, September 19, 2016 13:16 - CONCLUSION: 1. Small amount of interhemispheric subdural hemorrhage without mass effect or midline shift. 2. Right nasal bone fracture. Owen Salgado MD Chest X-Ray 09/19/16 1300 Signed Impressions: Service Date/Time: Monday, September 19, 2016 13:34 - CONCLUSION: 1. Minimal basilar atelectasis or scarring. Heart size upper limits normal. Mildly tortuous aorta. Owen Salgado MD Cervical Spine CT 09/19/16 1300 Signed Impressions: Service Date/Time: Monday, September 19, 2016 13:16 - CONCLUSION: 1. There are postsurgical changes in the upper cervical spine. The patient is post laminectomy at C2/3 and C3/4. 2. The C5-6 level is fused. 3. There are degenerative changes throughout the cervical spine. There is no fracture seen. Candido Becerra MD Other Results Laboratory Tests Test 09/19/16 09/20/16 09/20/16 17:30 04:00 04:08 Urine Color YELLOW Urine Turbidity CLEAR Urine pH 6.5 Urine Specific [place] 1.010 Urine Protein NEG Urine Glucose (UA) NEG Urine Ketones NEG Urine Occult Blood SMALL Urine Nitrite NEG Urine Bilirubin NEG Urine Urobilinogen LESS THAN 2.0 Urine Leukocyte Esterase NEG Urine RBC 3 Urine Squamous Epithelial <1 Cells Urine Mucus FEW Microscopic Urinalysis Comment CULT NOT INDICATED Sodium Level 140 Potassium Level 3.7 Chloride Level 105 Carbon Dioxide Level 27.1 Anion Gap 8 Blood Urea Nitrogen 21 Creatinine 1.10 Estimat Glomerular Filtration 65 Rate Random Glucose 88 Calcium Level 8.5 White Blood Count 9.5 Red Blood Count 3.85 Hemoglobin 11.6 Hematocrit 33.4 Mean Corpuscular Volume 86.7 Mean Corpuscular Hemoglobin 30.1 Mean Corpuscular Hemoglobin 34.7 Concent Red Cell Distribution Width 15.0 Platelet Count 134 Mean Platelet Volume 7.4 Neutrophils (%) (Auto) 69.8 Lymphocytes (%) (Auto) 17.8 Monocytes (%) (Auto) 10.4 Eosinophils (%) (Auto) 1.4 Basophils (%) (Auto) 0.6 Neutrophils # (Auto) 6.6 Lymphocytes # (Auto) 1.7 Monocytes # (Auto) 1.0 Eosinophils # (Auto) 0.1 Basophils # (Auto) 0.1 CBC Comment AUTO DIFF Differential Total Cells 100 Counted Neutrophils % (Manual) 70 Band Neutrophils % 7 Lymphocytes % 16 Monocytes % 6 Basophils % 1 Neutrophils # (Manual) 7.3 Differential Comment FINAL DIFF MANUAL Platelet Estimate LOW Platelet Morphology Comment NORMAL Red Cell Morphology Comment NORMAL Physical Exam Physical Exam GENERAL: This is a well-nourished, well-developed patient, in no apparent distress. SKIN: Abrasions noted to nose, legs. HEAD: Right periorbital swelling and bruising, laceration to right eyebrow. Abrasion to forehead and bridge of nose. . Normocephalic. No temporal or scalp tenderness. EYES: Pupils equal round and reactive. Extraocular motions intact. No scleral icterus. No injection or drainage. Some swelling of the bilateral eyelids ENT: Nose swelling noted. Airway patent. NECK: Trachea midline. No JVD or lymphadenopathy. Supple, nontender, no meningeal signs. CARDIOVASCULAR: Regular rate and rhythm without murmurs, gallops, or rubs. RESPIRATORY: Clear to auscultation. Breath sounds equal bilaterally. No wheezes , rales, or rhonchi. GASTROINTESTINAL: Abdomen soft, non-tender, nondistended. No hepato-splenomegaly , or palpable masses. No guarding. MUSCULOSKELETAL: Extremities without clubbing, cyanosis, or edema. No joint tenderness, effusion, or edema noted. No calf tenderness. Negative Homans sign bilaterally. NEUROLOGICAL: Awake, oriented x 3. No focal deficits. Answering questions appropriately. Speech clear. Gait not tested. A/P Assessment and Plan (1) Subdural hemorrhage (2) Syncopal episodes (3) Uncontrolled hypertension (4) Eyebrow laceration (5) Nasal bone fractures (6) hx of prior brain surgery for benign tumor removal (7) CKD (chronic kidney disease) stage 3, GFR 30-59 ml/min (8) Postural hypotension Plan 81 year old male with hx of syncope, postural hypotension admitted after having a syncopal episode while walking dog, evaluated in emergency room, CT findings of the small interhemispheric subdural hemorrhage without mass effect. Neurologically intact. -Patient seen in intensive care unit Neuro checks per protocol Neurosurgery consultation, appreciated Consultation by neurology appreciated as well as cardiology consultation as well -Maintain on bedrest, slightly high will keep her on a when necessary medication -Controlled blood pressure, keep systolic at 150 or less. Uncontrolled HTN. Blood pressure is usually low, history of posterior hypotension, on Florinef. -Control BP, keep at 150 or less -Vasotec PRN and hydralazine on a when necessary basis -If Blood rressure not controlled patient may need Cardene drip Chronic kidney disease stage III, patient unaware of history, appears stable Continue with hydration, BMP in the morning Prior history of brain cyst removal -Monitor Home medications reviewed, initiated as indicated Avoid anticoagulation, SCDs for DVT prophylaxis PPI for GI prophylaxis Plan of care has been discussed with the patient and , at bedside. Plan of care discussed with registered nurse. Further management of the patient will be dependent on the hospital course Overall stable will transfer to regular floor Chace Cherry MD Sep 20, 2016 15:46
[2016-09-20] MEDS ORDERED: hydrALAZINE HCL 10 MG TAB PO PRN (16:00)
[2016-09-20] MEDS: FLUDROCORTISONE ACETATE 0.1 MG TAB PO SCH (19:56)
[2016-09-20] MEDS: clonazePAM 1 MG TAB PO SCH (19:57)
[2016-09-21] VITALS (11 sets, daily range): BP systolic 142–165; BP diastolic 80–86; PULSE 60–76; RESP 18–22; TEMP 97.3–98.9; O2SAT 95–97
[2016-09-21] MEDS: CHLORHEXIDINE GLUCONATE 2 % 1 PACK (2 CLOTHS)(taper/protocol) TOP SCH (00:28)
[2016-09-21 07:57] LABS: HEMATOCRIT 35.3 % (39.0-51.0); MEAN CELL VOLUME 86.6 FL (80.0-100.0); MEAN CORPUSCULAR HEMOGLOBIN 29.2 PG (27.0-34.0); MEAN CORPUSCULAR HGB CONC 33.7 % (32.0-36.0); PLATELET COUNT 137 TH/MM3 (150-450); RED BLOOD COUNT 4.08 MIL/MM3 (4.50-5.90); RED CELL DISTRIBUTION WIDTH 14.8 % (11.6-17.2); REVIEW FLAG FINAL; WHITE BLOOD COUNT 9.1 TH/MM3 (4.0-11.0)
--- NOTE | 2016-09-21 08:54 | PD.CARD.PN ---
Subjective Subjective Remarks Feeling better. No lightheadedness or syncopy. No CP, SOB. Objective Medications Current Medications Medications (Trade) Dose Ordered Sig/Jovan Route PRN Reason Start Time Stop Time Status Last Admin Dose Admin Pantoprazole Sodium (Protonix) 40 mg DAILY PO 09/20/16 09:00 09/20/16 08:30 Acetaminophen (Tylenol Supp) 650 mg Q4H PRN TX PAIN SCALE 1 TO 10 09/19/16 15:15 Docusate Sodium (Colace) 100 mg BID PRN PO CONSTIPATION 09/19/16 15:15 Magnesium Hydroxide (Milk Of Magnesia Liq) 30 ml DAILY PRN PO Severe Constipation 09/19/16 15:15 Sertraline HCl (Zoloft) 100 mg DAILY PO 09/20/16 09:00 09/20/16 08:30 Potassium Chloride (KCl) 30 meq Q12HR PO 09/19/16 21:00 09/20/16 19:56 Clonazepam (KlonoPIN) 1 mg HS PO 09/19/16 21:00 09/20/16 19:57 IV Flush (NS Flush) 2 ml UNSCH PRN FLUSH FLUSH AFTER USING IV ACCESS 09/19/16 15:15 IV Flush (NS Flush) 2 ml BID FLUSH 09/19/16 21:00 09/20/16 19:56 Acetaminophen (Tylenol) 650 mg Q4H PRN PO TEMP > 100.4 09/19/16 15:15 09/20/16 23:28 Ondansetron HCl (Zofran Inj) 4 mg Q6H PRN IVP NAUSEA OR VOMITING 09/19/16 15:15 Naloxone HCl (Narcan Inj) 0.4 mg UNSCH PRN IV SEE LABEL COMMENTS 09/19/16 15:15 Enalaprilat (Vasotec Inj) 1.25 mg Q6H PRN IV PUSH SBP>160, DBP>90 09/19/16 15:15 09/20/16 12:25 Potassium Chloride (KCl) 30 meq BID PO 09/19/16 21:00 Chlorhexidine Gluconate (Chlorhexidine 2% Cloth) 3 pack DAILY@04 TOP 09/20/16 04:00 09/24/16 04:01 09/21/16 00:28 Chlorhexidine Gluconate (Chlorhexidine 2% Cloth) 3 pack UNSCH PRN TOP HYGIENIC CARE 09/19/16 21:00 09/24/16 20:57 Hydralazine HCl (Apresoline) 10 mg QID PRN PO SBP> OR = 160, DBP> OR = 95 09/20/16 16:00 09/21/16 06:08 Fludrocortisone Acetate (Florinef) 0.2 mg BID PO 09/20/16 21:00 09/20/16 19:56 Vital Signs / I&O Vital Signs Date Time Temp Pulse Resp B/P Pulse Ox O2 Delivery O2 Flow Rate FiO2 09/21/16 08:30 98.9 67 18 162/84 95 09/21/16 04:00 98.4 68 18 162/86 97 09/21/16 01:00 97.8 60 18 161/86 97 09/21/16 00:00 98.4 66 22 142/81 95 09/21/16 00:00 66 09/20/16 22:00 69 09/20/16 20:00 73 09/20/16 20:00 98.5 73 26 137/75 93 09/20/16 19:06 95 21 09/20/16 18:00 67 09/20/16 16:00 98.3 65 20 175/89 94 09/20/16 16:00 65 09/20/16 14:00 78 09/20/16 12:06 99 21 09/20/16 12:00 98.2 18 186/96 94 09/20/16 10:00 72 I/O 09/20/16 09/20/16 09/20/16 09/21/16 09/21/16 09/21/16 07:00 15:00 23:00 07:00 15:00 23:00 Intake Total 389 ml 1085 ml 100 ml 240 ml Output Total 600 ml 1100 ml 625 ml 700 ml Balance -211 ml -15 ml -525 ml -460 ml Intake Oral 0 ml 700 ml 100 ml 240 ml IV Total 389 ml 385 ml 0 ml Output Urine Total 600 ml 1100 ml 625 ml 700 ml # Bowel Movements 0 1 1 Physical Exam VSS, afebrile. No JVD Lungs: CTA Heart: RRR Ext: No C/C/E Laboratory Laboratory Tests Test 09/20/16 09/21/16 19:30 06:30 Nasal Screen MRSA (PCR) NEGATIVE White Blood Count 9.1 TH/MM3 Red Blood Count 4.08 MIL/MM3 Hemoglobin 11.9 GM/DL Hematocrit 35.3 % Mean Corpuscular Volume 86.6 FL Mean Corpuscular Hemoglobin 29.2 PG Mean Corpuscular Hemoglobin 33.7 % Concent Red Cell Distribution Width 14.8 % Platelet Count 137 TH/MM3 Mean Platelet Volume 7.2 FL Thyroid Stimulating Hormone 3.330 uIU/ML [facility] Last [address] 09/20/16 0611 Signed Impressions: Service Date/Time: September 06:31 - CONCLUSION: Improvement in the subdural interhemispheric blood. No new hemorrhage observe. Judd Sheets Jr., MD Cervical Spine MRI 09/20/16 0000 Signed Impressions: Service Date/Time: September 11:38 - CONCLUSION: Stable MR appearance of the cervical spine with no evidence of acute traumatic injury or other acute process. Buster Qureshi MD Brain MRI 09/20/16 0000 Signed Impressions: Service Date/Time: September 11:38 - CONCLUSION: 1. Cerebral atrophy. 2. Minimal chronic ischemic small vessel vasculopathy. 3. The previously identified hemorrhage appears to have resolved. Angel Mcdonald MD Maxillofacial CT 09/19/16 1300 Signed Impressions: Service Date/Time: Monday, September 19, 2016 13:16 - CONCLUSION: 1. Bilateral nasal bone fractures without significant displacement. Owen Salgado MD Head CT 09/19/16 1300 Signed Impressions: Service Date/Time: Monday, September 19, 2016 13:16 - CONCLUSION: 1. Small amount of interhemispheric subdural hemorrhage without mass effect or midline shift. 2. Right nasal bone fracture. Owen Salgado MD Chest X-Ray 09/19/16 1300 Signed Impressions: Service Date/Time: Monday, September 19, 2016 13:34 - CONCLUSION: 1. Minimal basilar atelectasis or scarring. Heart size upper limits normal. Mildly tortuous aorta. Owen Salgado MD Cervical Spine CT 09/19/16 1300 Signed Impressions: Service Date/Time: Monday, September 19, 2016 13:16 - CONCLUSION: 1. There are postsurgical changes in the upper cervical spine. The patient is post laminectomy at C2/3 and C3/4. 2. The C5-6 level is fused. 3. There are degenerative changes throughout the cervical spine. There is no fracture seen. Candido Becerra MD Assessment and Plan Problem List: (1) Subdural hemorrhage (2) Postural hypotension (3) CKD (chronic kidney disease) stage 3, GFR 30-59 ml/min (4) Syncopal episodes Assessment and Plan CV stable. Prefer to keep his BP on high side to avoide recurrent orthostatic symptoms. SBP 160's OK. Increase activity with assistance. OK for discharge to rehab from cardiac standpoint on current meds. I will see him back as outpatient. Thank you. Code Status Full Discussed Condition With Patient Problem Qualifiers (1) Syncopal episodes: Qualified Code: R55 - Syncope, unspecified syncope type Archie Gonzalez MD Sep 21, 2016 08:54
[2016-09-21] MEDS: POTASSIUM CHLORIDE 10 MEQ CONTROLLED RELEASE TAB PO SCH ×4 (09:00→20:54)
[2016-09-21] MEDS: SODIUM CHLORIDE 0.9% FLUSH 5 ML FLUSH FLUSH SCH ×2 (09:00→20:54)
[2016-09-21] MEDS: PANTOPRAZOLE SOD 40 MG DELAYED RELEASE TAB PO SCH (09:29)
[2016-09-21] MEDS: SERTRALINE HCL 100 MG TAB PO SCH (09:30)
[2016-09-21] MEDS: ENALAPRILAT 1.25 MG/ML VIAL IV PUSH PRN (09:31)
[2016-09-21] MEDS: FLUDROCORTISONE ACETATE 0.1 MG TAB PO SCH ×2 (09:37→20:54)
--- NOTE | 2016-09-21 12:11 | HHI.PR ---
Subjective Subjective Remarks sitting up in chair alert and oriented x 3, no focal deficits. no dizziness unsteady when he ambulates, uses walker, this is same as before no cp no sob facial swelling improving, less tender tele reviewed, SR with some PVCs (Margot Ramos) Review of Systems Constitutional Constitutional Remarks 12 point ROS completed, negative except as noted above (Margot Ramos) Vitals/Results Intake & Output 09/20/16 09/20/16 09/21/16 15:00 23:00 07:00 Intake Total 1085 ml 100 ml 240 ml Output Total 1100 ml 625 ml 700 ml Balance -15 ml -525 ml -460 ml Intake Oral 700 ml 100 ml 240 ml IV Total 385 ml 0 ml Output Urine Total 1100 ml 625 ml 700 ml # Bowel Movements 1 1 Vital Signs Vital Signs Date Time Temp Pulse Resp B/P Pulse Ox O2 Delivery O2 Flow Rate FiO2 09/21/16 09:00 97 21 09/21/16 08:30 98.9 67 18 162/84 95 09/21/16 04:00 98.4 68 18 162/86 97 09/21/16 01:00 97.8 60 18 161/86 97 09/21/16 00:00 98.4 66 22 142/81 95 09/21/16 00:00 66 09/20/16 22:00 69 09/20/16 20:00 73 09/20/16 20:00 98.5 73 26 137/75 93 09/20/16 19:06 95 21 09/20/16 18:00 67 09/20/16 16:00 98.3 65 20 175/89 94 09/20/16 16:00 65 09/20/16 14:00 78 09/20/16 12:06 99 21 (Margot Ramos) CBC/BMP: 09/21/16 0630 09/20/16 0400 Lab Results Laboratory Tests Test 09/20/16 09/21/16 19:30 06:30 Nasal Screen MRSA (PCR) NEGATIVE White Blood Count 9.1 TH/MM3 Red Blood Count 4.08 MIL/MM3 Hemoglobin 11.9 GM/DL Hematocrit 35.3 % Mean Corpuscular Volume 86.6 FL Mean Corpuscular Hemoglobin 29.2 PG Mean Corpuscular Hemoglobin 33.7 % Concent Red Cell Distribution Width 14.8 % Platelet Count 137 TH/MM3 Mean Platelet Volume 7.2 FL Thyroid Stimulating Hormone 3.330 uIU/ML 3rd Gen (Margot Ramos G. [employer] DIRECT[employer]) Physical Exam General General Appearance: Well Developed, Well Nourished, No Acute Distress, Comfortable (Margot Ramos G. [employer] DIRECT[employer]) Eyes Eye Exam: Pupils Equal, Pupils Reactive Eye Remarks right periorbital bruising, laceration to right eyebrow swelling down (Margot Ramos G. [employer]IL [employer]ING DIRECT[employer]) Ears & Nose Ears & Nose Exam: Nasal Mucosa [place] Ears & Nose Remarks nose swelling improving (Margot Ramos G. [employer] DIRECT[employer]) Throat Throat Exam: Oral Mucosa [place] & Moist (Margot Ramos G. [employer]IL [employer]ING DIRECTOR) Neck Neck Exam: Neck Supple, Trachea Midline (Margot Ramos G. [employer]IL [employer] AGING DIRECTOR) Pulmonary Resp Exam: Clear Bilaterally (GrossAlfonsoMargot G. [employer]NCIL [employer] AGING DIRECTOR) Cardiology CV Exam: Regular, Good Perfusion (Margot Ramos G. [employer]NCIL [employer] AGING DIRECTOR) Gastrointestinal/Abdomen GI Exam: Soft, Non-Tender, Bowel Sounds Present, Non-Distended (Margot Ramos G. [employer]NC[employer] AGING DIRECTOR) Musculoskeletal MS Exam: Joints Intact (GrossMargot G. [employer]NC[employer] AGING DIRECTOR) Integumentary Skin Exam: Warm, Dry (Margot Ramos G. [employer]NC[employer] AGING DIRECTOR) Extremeties Extremities Exam: No Edema, Pedal Pulses Palpable (Margot Ramos G. [employer]NC[employer] AGING DIRECTOR) Neurologic Neuro Exam: Alert, Awake, Oriented, Speech Clear, Moving All Extremities, No Focal Deficits (Margot Ramos G. [employer] AGING DIRECTOR) Psychiatric Psych Exam: Appropriate Responses (Margot Ramos G. [employer]ING DIRECTOR) VTE Prophylaxis VTE Prophylaxis Device: SCDs (Margot Ramos G. [employer] AGING DIRECTOR) PUD Prophylasis PUD Prophylaxis: Protonix (Margot Ramos G. [employer] AGING DIRECTOR) Assessment/Plan Problem List: (1) Syncopal episodes (2) Subdural hemorrhage (3) Eyebrow laceration (4) Nasal bone fractures (5) Uncontrolled hypertension (6) CKD (chronic kidney disease) stage 3, GFR 30-59 ml/min (7) Postural hypotension (8) hx of prior brain surgery for benign tumor removal Assessment/Plan 81 year old male with hx of syncope, postural hypotension admitted after having a syncopal episode while walking dog, evaluated in emergency room, CT findings of the small interhemispheric subdural hemorrhage without mass effect. Neurologically intact. Neuro checks per protocol Neurosurgery consultation, appreciated Consultation by neurology appreciated as well as cardiology -Repeat CT improved. Neurosurgery cleared for rehab -PT/OT -CM for discharge planning, poss. to CIR today or tomorrow. Pt. agreeable Uncontrolled HTN. Blood pressure is usually low, history of posterior hypotension, on Florinef. -Due to postural hypotension, Dr. Duron recommends to keep BP on higher side , SBP 160 -Will dc PRN BP meds -Continue Florinef -Will add Julio syed Chronic kidney disease stage III, patient unaware of history, appears stable Creat improved -Off IVF Prior history of brain cyst removal -Monitor Avoid anticoagulation, SCDs for DVT prophylaxis PPI for GI prophylaxis Hopefully dc to CIR today or tomorrow D/W RN D/W Dr. Cherry D/W pt. This patient was seen by myself and Dr. Cherry, this note is written on his behalf (Margot Ramos) Assessment/Plan Patient seen and examined as above Labs reviewed Medications reviewed Plan of care discussed with COUNCIL [employer] AGING DIRECTOR Discussed with patient (Chace Cherry MD) Problem Qualifiers (1) Syncopal episodes: Qualified Code: R55 - Syncope, unspecified syncope type (2) Eyebrow laceration: Qualified Code: S01.111A - Eyebrow laceration, right, initial encounter (3) Nasal bone fractures: Qualified Code: S02.2XXA - Closed fracture of nasal bone, initial encounter Margot Ramos Sep 21, 2016 12:11 Chace Cherry MD Sep 21, 2016 15:54
--- NOTE | 2016-09-21 13:16 | PD.CONS ---
[facility] Service Rehabilitation Medicine Consult Requested By Reason for Consult Comprehensive rehabilitation evaluation. Primary Care Physician Archie Gonzalez MD History of Present Illness Shaggy Godfrey is a 81-year-old right-hand dominant male admitted [facility] 09/19/16 after witnessed episode of syncope. He fell forward. Head CT showed small interhemispheric subdural hematoma. This was treated nonsurgically. He also is noted to have bilateral nasal bone fractures. Cardiology has evaluated patient and Florinef has been adjusted. Review of Systems Constitutional: DENIES: Fatigue Eyes: DENIES: Blurred vision, Diplopia Ears, nose, mouth, throat: COMPLAINS OF: Hearing loss (Unchangd) Respiratory: DENIES: Shortness of breath Cardiovascular: DENIES: Chest pain Gastrointestinal: DENIES: Abdominal pain Genitourinary: DENIES: Urinary incontinence Musculoskeletal: DENIES: Back pain Integumentary: DENIES: Rash Hematologic/lymphatic: COMPLAINS OF: Bruising Immunologic/allergic: DENIES: Urticaria Neurologic: DENIES: Headache, Localized weakness, Paresthesias, Speech Problems Psychiatric: DENIES: Confusion Past Family Social History Allergies: Coded Allergies: Cipro (Verified Allergy, Mild, 02/07/12) Past Medical History Postural hypotension GERD Depression Past Surgical History Brainstem tumor status post resection Hernia repair TURP Cholecystectomy Appendectomy Current Medications Current Medications Medications (Trade) Dose Ordered Sig/Jovan Route Start Time Stop Time Status Last Admin (Protonix) 40 mg DAILY PO 09/20/16 09:00 09/21/16 09:29 (Tylenol Supp) 650 mg Q4H PRN MD 09/19/16 15:15 (Colace) 100 mg BID PRN PO 09/19/16 15:15 (Milk Of Magnesia Liq) 30 ml DAILY PRN PO 09/19/16 15:15 (Zoloft) 100 mg DAILY PO 09/20/16 09:00 09/21/16 09:30 (KCl) 30 meq Q12HR PO 09/19/16 21:00 09/21/16 09:29 (KlonoPIN) 1 mg HS PO 09/19/16 21:00 09/20/16 19:57 (NS Flush) 2 ml UNSCH PRN FLUSH 09/19/16 15:15 (NS Flush) 2 ml BID FLUSH 09/19/16 21:00 09/21/16 09:00 (Tylenol) 650 mg Q4H PRN PO 09/19/16 15:15 09/20/16 23:28 (Zofran Inj) 4 mg Q6H PRN IVP 09/19/16 15:15 (Narcan Inj) 0.4 mg UNSCH PRN IV 09/19/16 15:15 (KCl) 30 meq BID PO 09/19/16 21:00 (Chlorhexidine 2% Cloth) 3 pack DAILY@04 TOP 09/20/16 04:00 09/24/16 04:01 09/21/16 00:28 (Chlorhexidine 2% Cloth) 3 pack UNSCH PRN TOP 09/19/16 21:00 09/24/16 20:57 (Florinef) 0.2 mg BID PO 09/20/16 21:00 09/21/16 09:37 Family History Mother: Coronary artery disease Father: Coronary artery disease Social History Patient is retired. He lives with his in a manufactured home. He quit smoking cigarettes 22 years ago. Occasional alcohol use. Exam I&O / VS 09/20/16 09/20/16 09/21/16 15:00 23:00 07:00 Intake Total 1085 ml 100 ml 240 ml Output Total 1100 ml 625 ml 700 ml Balance -15 ml -525 ml -460 ml Intake Oral 700 ml 100 ml 240 ml IV Total 385 ml 0 ml Output Urine Total 1100 ml 625 ml 700 ml # Bowel Movements 1 1 Vital Signs Date Time Temp Pulse Resp B/P Pulse Ox O2 Delivery O2 Flow Rate FiO2 09/21/16 09:00 97 21 09/21/16 08:30 98.9 67 18 162/84 95 09/21/16 04:00 98.4 68 18 162/86 97 09/21/16 01:00 97.8 60 18 161/86 97 09/21/16 00:00 98.4 66 22 142/81 95 09/21/16 00:00 66 09/20/16 22:00 69 09/20/16 20:00 73 09/20/16 20:00 98.5 73 26 137/75 93 09/20/16 19:06 95 21 09/20/16 18:00 67 09/20/16 16:00 98.3 65 20 175/89 94 09/20/16 16:00 65 09/20/16 14:00 78 General: No acute distress Respiratory: Lungs CTA, Non-labored respirations, BS equal Gastrointestinal: Positive Bowel Sounds, Non-Distended, Non-Tender Cardiovascular: Normal rate, Regular Rhythm Skin: Wound(s) (Multiple facial abrasions), Other (No rash noted) Psychiatric: Cooperative, Appropriate mood & affect Orientation: oriented to Self, oriented to Place, oriented to Time, oriented to Situation Neurologic: Cranial Nerves (Intact 2-12), Speech (Clear), Coordination ( Decreased UE) Motor: Right Upper Extremity (5/5), Left Upper Extremity (5/5), Right Lower Extremity (5/5), Left Lower Extremity (5/5) Sensory Intact to light touch bilateral UE and LE DTRs: Normal Babinski: Negative Clonus: Negative Assessment and Plan Diagnosis: (1) Subdural hemorrhage Plan 1. PT mobilizing and ambulating 15 feet times 4 with CG to moderate assistance with decreased balance. Continue to mobilize with careful fall precautions 2. OT for ADL evaluation and independence 3. Case management working on continued rehabilitation at discharge. Patient will benefit from ongoing inpatient rehabilitation to maximize mobility/ decreased fall risk and maximize independence with ADLs. 4. Will follow while hospitalized and at discharge. Thank you for this consult. Nicolette Mathew MD Sep 21, 2016 13:16
--- NOTE | 2016-09-21 15:06 | MG ---
cc: AUDREY HEWITT M.D. Lab No: Date: 09/20/2016 Age: Sex: M Race: TECHNIQUE: A 17 channel EEG. DESCRIPTION: The background rhythm shows mild slowing in the theta frequency bilaterally at roughly 6 hertz. Amplitude is about 10 to 20 microvolts. There is some muscle artifact. No lateralizing features are identified and no epileptiform features are seen. Photic results in a poor driving response. INTERPRETATION: The study is consistent with a mild encephalopathy. MD ISAURO Zarate/PERLITA /3:01 PM /3:03 PM
--- NOTE | 2016-09-21 20:47 | HHI.PR ---
Review/Management Diagnosis/Plan: (1) Subdural hemorrhage Plan: Head CT this am shows improved falcine SDH; His is worried about his ability to function at home. He already has had outpatient rehab but is still falling. Neurology evaluation may be helpful.MRI of the brain and C spine could not be [place] [facility] and have been ordered for new baseline here at [place]. OT/PT ordered. Anticoagulation is to be avoided until healing of the SDH is confirmed. He can transfer to the floor. Daily Summary remains nearly intact neuro, appeared sharp this evening no focal motor deficits at bedside eeg benign will follow prn Subjective Subjective Comments No acute events reported No headache No chest pain No dyspnea Active Medications Current Medications Medications (Trade) Dose Ordered Sig/Jovan Route Start Time Stop Time Status Last Admin (Protonix) 40 mg DAILY PO 09/20/16 09:00 09/21/16 09:29 (Tylenol Supp) 650 mg Q4H PRN AL 09/19/16 15:15 (Colace) 100 mg BID PRN PO 09/19/16 15:15 (Milk Of Magnesia Liq) 30 ml DAILY PRN PO 09/19/16 15:15 (Zoloft) 100 mg DAILY PO 09/20/16 09:00 09/21/16 09:30 (KCl) 30 meq Q12HR PO 09/19/16 21:00 09/21/16 09:29 (KlonoPIN) 1 mg HS PO 09/19/16 21:00 09/20/16 19:57 (NS Flush) 2 ml UNSCH PRN FLUSH 09/19/16 15:15 (NS Flush) 2 ml BID FLUSH 09/19/16 21:00 09/21/16 09:00 (Tylenol) 650 mg Q4H PRN PO 09/19/16 15:15 09/20/16 23:28 (Zofran Inj) 4 mg Q6H PRN IVP 09/19/16 15:15 (Narcan Inj) 0.4 mg UNSCH PRN IV 09/19/16 15:15 (KCl) 30 meq BID PO 09/19/16 21:00 (Chlorhexidine 2% Cloth) 3 pack DAILY@04 TOP 09/20/16 04:00 09/24/16 04:01 09/21/16 00:28 (Chlorhexidine 2% Cloth) 3 pack UNSCH PRN TOP 09/19/16 21:00 09/24/16 20:57 (Florinef) 0.2 mg BID PO 09/20/16 21:00 09/21/16 09:37 Allergies Allergies Coded Allergies Cipro (Verified Allergy, Mild, 02/07/12) Exam I&O / VS 09/20/16 09/20/16 09/21/16 15:00 23:00 07:00 Intake Total 1085 ml 100 ml 240 ml Output Total 1100 ml 625 ml 700 ml Balance -15 ml -525 ml -460 ml Intake Oral 700 ml 100 ml 240 ml IV Total 385 ml 0 ml Output Urine Total 1100 ml 625 ml 700 ml # Bowel Movements 1 1 Vital Signs Date Time Temp Pulse Resp B/P Pulse Ox O2 Delivery O2 Flow Rate FiO2 09/21/16 17:11 98.2 72 18 142/80 95 09/21/16 13:11 98.3 71 18 142/82 97 09/21/16 10:00 76 09/21/16 09:30 67 09/21/16 09:00 97 21 09/21/16 08:30 98.9 67 18 162/84 95 09/21/16 04:00 98.4 68 18 162/86 97 09/21/16 01:00 97.8 60 18 161/86 97 09/21/16 00:00 98.4 66 22 142/81 95 09/21/16 00:00 66 09/20/16 22:00 69 Respiratory: Lungs CTA, Non-labored respirations, BS equal Cardiology: Normal rate, Regular Rhythm Objective Radiology Results Last [address] 09/20/16 0611 Signed Impressions: Service Date/Time: September 06:31 - CONCLUSION: Improvement in the subdural interhemispheric blood. No new hemorrhage observe. Judd Sheets Jr., MD Cervical Spine MRI 09/20/16 0000 Signed Impressions: Service Date/Time: September 11:38 - CONCLUSION: Stable MR appearance of the cervical spine with no evidence of acute traumatic injury or other acute process. Buster Qureshi MD Brain MRI 09/20/16 0000 Signed Impressions: Service Date/Time: September 11:38 - CONCLUSION: 1. Cerebral atrophy. 2. Minimal chronic ischemic small vessel vasculopathy. 3. The previously identified hemorrhage appears to have resolved. Angel Mcdonald MD Micro and Labs Laboratory Tests Test 09/21/16 06:30 White Blood Count 9.1 Red Blood Count 4.08 Hemoglobin 11.9 Hematocrit 35.3 Mean Corpuscular Volume 86.6 Mean Corpuscular Hemoglobin 29.2 Mean Corpuscular Hemoglobin 33.7 Concent Red Cell Distribution Width 14.8 Platelet Count 137 Mean Platelet Volume 7.2 Thyroid Stimulating Hormone 3.330 3rd Gen Yasmine Jones MD Sep 21, 2016 20:47
[2016-09-21] MEDS: clonazePAM 1 MG TAB PO SCH (20:54)
--- NOTE | 2016-09-21 23:53 | HHI.NSPN ---
History Chief Complaint: mild gait unsteadiness Interval History Fall-possible syncope.Parafalcine SDH Exam Results Vital Signs Date Time Temp Pulse Resp B/P Pulse Ox O2 Delivery O2 Flow Rate FiO2 09/21/16 20:00 66 09/21/16 17:11 98.2 18 142/80 95 09/21/16 09:00 21 09/19/16 17:10 Room Air Intake and Output 09/20/16 09/20/16 09/21/16 08:00 16:00 00:00 Intake Total 389 ml 1085 ml 100 ml Output Total 600 ml 1100 ml 625 ml Balance -211 ml -15 ml -525 ml Physical Examination Awake and alert Speech clear and appropriate Oriented 3 Follow simple commands well Extraocular movements intact Respirations clear and regular Gets out of bed with mild difficulty Lab, Micro, Other Results Head CT 09/20/16 0611 Signed Impressions: Service Date/Time: September 06:31 - CONCLUSION: Improvement in the subdural interhemispheric blood. No new hemorrhage observe. Judd Sheets Jr., MD Cervical Spine MRI 09/20/16 0000 Signed Impressions: Service Date/Time: September 11:38 - CONCLUSION: Stable MR appearance of the cervical spine with no evidence of acute traumatic injury or other acute process. Buster Qureshi MD Brain MRI 09/20/16 0000 Signed Impressions: Service Date/Time: September 11:38 - CONCLUSION: 1. Cerebral atrophy. 2. Minimal chronic ischemic small vessel vasculopathy. 3. The previously identified hemorrhage appears to have resolved. Angel Mcdonald MD Laboratory Tests Test 09/21/16 06:30 White Blood Count 9.1 TH/MM3 Red Blood Count 4.08 MIL/MM3 Hemoglobin 11.9 GM/DL Hematocrit 35.3 % Mean Corpuscular Volume 86.6 FL Mean Corpuscular Hemoglobin 29.2 PG Mean Corpuscular Hemoglobin 33.7 % Concent Red Cell Distribution Width 14.8 % Platelet Count 137 TH/MM3 Mean Platelet Volume 7.2 FL Thyroid Stimulating Hormone 3.330 uIU/ML 3rd Gen Medical Decision Making Impression and Plan Impression: 1. Traumatic brain injury with interhemispheric subdural hematoma-mostly resolved on MRI 09/20/16 Possible syncopal episodes Plan: Findings discussed with patient. Some persistent gait unsteadiness Continue therapy Monitor neurologic function Discharge planning Bk Snowden MD Sep 21, 2016 23:53
[2016-09-22] VITALS (10 sets, daily range): BP systolic 153–200; BP diastolic 78–105; PULSE 62–72; RESP 18–26; TEMP 96.7–98.7; O2SAT 96–99
[2016-09-22] MEDS: CHLORHEXIDINE GLUCONATE 2 % 1 PACK (2 CLOTHS)(taper/protocol) TOP SCH ×2 (04:00→22:36)
[2016-09-22] MEDS: POTASSIUM CHLORIDE 10 MEQ CONTROLLED RELEASE TAB PO SCH ×4 (09:00→22:35)
[2016-09-22] MEDS: SERTRALINE HCL 100 MG TAB PO SCH (09:48)
[2016-09-22] MEDS: SODIUM CHLORIDE 0.9% FLUSH 5 ML FLUSH FLUSH SCH ×2 (09:48→22:36)
[2016-09-22] MEDS: FLUDROCORTISONE ACETATE 0.1 MG TAB PO SCH ×2 (09:49→22:30)
[2016-09-22] MEDS: PANTOPRAZOLE SOD 40 MG DELAYED RELEASE TAB PO SCH (09:49)
--- NOTE | 2016-09-22 12:40 | HHI.PR ---
Subjective Remarks Patient is feeling better Walking with a walker Concern about his postural hypotension this morning which is significant Offering no complaint at present Review of system for 12 point system otherwise unremarkable Objective Objective Results - Vital Signs Date Time Temp Pulse Resp B/P Pulse Ox O2 Delivery O2 Flow Rate FiO2 09/22/16 11:00 97.7 64 20 171/91 99 09/22/16 07:00 97.6 68 18 180/101 97 09/22/16 04:00 97.2 68 18 183/98 97 09/22/16 00:00 97.0 67 20 153/78 96 09/21/16 20:00 66 09/21/16 20:00 97.3 63 20 165/85 96 09/21/16 17:11 98.2 72 18 142/80 95 09/21/16 13:11 98.3 71 18 142/82 97 I/O 09/21/16 09/21/16 09/21/16 09/22/16 09/22/16 09/22/16 07:00 15:00 23:00 07:00 15:00 23:00 Intake Total 240 ml 440 ml 480 ml Output Total 700 ml 400 ml 60 ml Balance -460 ml 40 ml 420 ml Intake Oral 240 ml 440 ml 480 ml Output Urine Total 700 ml 400 ml 60 ml # Voids 3 # Bowel Movements 1 Result Diagram: 09/21/16 0630 09/20/16 0400 Imaging Last Impressions Maxillofacial CT 09/19/16 1300 Signed Impressions: Service Date/Time: Monday, September 19, 2016 13:16 - CONCLUSION: 1. Bilateral nasal bone fractures without significant displacement. Owen Salgado MD Head CT 09/19/16 1300 Signed Impressions: Service Date/Time: Monday, September 19, 2016 13:16 - CONCLUSION: 1. Small amount of interhemispheric subdural hemorrhage without mass effect or midline shift. 2. Right nasal bone fracture. Owen Salgado MD Chest X-Ray 09/19/16 1300 Signed Impressions: Service Date/Time: Monday, September 19, 2016 13:34 - CONCLUSION: 1. Minimal basilar atelectasis or scarring. Heart size upper limits normal. Mildly tortuous aorta. Owen Salgado MD Cervical Spine CT 09/19/16 1300 Signed Impressions: Service Date/Time: Monday, September 19, 2016 13:16 - CONCLUSION: 1. There are postsurgical changes in the upper cervical spine. The patient is post laminectomy at C2/3 and C3/4. 2. The C5-6 level is fused. 3. There are degenerative changes throughout the cervical spine. There is no fracture seen. Candido Becerra MD Physical Exam Physical Exam GENERAL: This is a well-nourished, well-developed patient, in no apparent distress. SKIN: Abrasions noted to nose, legs. HEAD: Right periorbital swelling and bruising, laceration to right eyebrow. Abrasion to forehead and bridge of nose. . Normocephalic. No temporal or scalp tenderness. EYES: Pupils equal round and reactive. Extraocular motions intact. No scleral icterus. No injection or drainage. Some swelling of the bilateral eyelids ENT: Nose swelling noted. Airway patent. NECK: Trachea midline. No JVD or lymphadenopathy. Supple, nontender, no meningeal signs. CARDIOVASCULAR: Regular rate and rhythm without murmurs, gallops, or rubs. RESPIRATORY: Clear to auscultation. Breath sounds equal bilaterally. No wheezes , rales, or rhonchi. GASTROINTESTINAL: Abdomen soft, non-tender, nondistended. No hepato-splenomegaly , or palpable masses. No guarding. MUSCULOSKELETAL: Extremities without clubbing, cyanosis, or edema. No joint tenderness, effusion, or edema noted. No calf tenderness. Negative Homans sign bilaterally. NEUROLOGICAL: Awake, oriented x 3. No focal deficits. Answering questions appropriately. Speech clear. Gait not tested. A/P Assessment and Plan (1) Syncopal episodes (2) Subdural hemorrhage (3) Eyebrow laceration (4) Nasal bone fractures (5) Uncontrolled hypertension (6) CKD (chronic kidney disease) stage 3, GFR 30-59 ml/min (7) Postural hypotension (8) hx of prior brain surgery for benign tumor removal Plan 81 year old male with hx of syncope, postural hypotension admitted after having a syncopal episode while walking dog, evaluated in emergency room, CT findings of the small interhemispheric subdural hemorrhage without mass effect. Neurologically intact. Neuro checks per protocol Neurosurgery consultation, appreciated Consultation by neurology appreciated as well as cardiology -Repeat CT improved. Neurosurgery cleared for rehab -PT/OT -CM for discharge planning, poss. to a long-term facility tomorrow. Pt. patient is finally agreeable . Discussed with on phone Uncontrolled HTN. Blood pressure is usually low, history of posterior hypotension, on Florinef. 0.2 mg twice a day -Due to postural hypotension, Dr. Duron recommends to keep BP on higher side , SBP 160 to 170s. Discussed with him on phone today -Will dc PRN BP meds -Continue Florinef -Julio syed Chronic kidney disease stage III, patient unaware of history, appears stable Creat improved -Off IVF Prior history of brain cyst removal -Monitor Avoid anticoagulation, SCDs for DVT prophylaxis PPI for GI prophylaxis Hopefully dc to CIR today or tomorrow D/W RN D/W pt. and discussed with on phone Consult case management for a long-term facility on discharge. Will monitor in house today because of significant postural hypotension Chace Cherry MD Sep 22, 2016 12:39
[2016-09-22] MEDS: clonazePAM 1 MG TAB PO SCH (22:34)
--- NOTE | 2016-09-22 22:50 | HHI.NSPN ---
History Chief Complaint: mild gait unsteadiness Interval History Fall-possible syncope.Parafalcine SDH Exam Results Vital Signs Date Time Temp Pulse Resp B/P Pulse Ox O2 Delivery O2 Flow Rate FiO2 09/22/16 20:00 98.7 62 26 153/84 96 09/21/16 09:00 21 09/19/16 17:10 Room Air Intake and Output 09/21/16 09/21/16 09/22/16 08:00 16:00 00:00 Intake Total 240 ml 440 ml Output Total 700 ml 400 ml Balance -460 ml 40 ml Physical Examination Awake and alert Speech clear and appropriate Oriented 3 Follow simple commands well Extraocular movements intact Respirations clear and regular Gets out of bed with mild difficulty Able to stand up and ambulate to chair without significant difficulty Lab, Micro, Other Results Last Impressions Head CT 09/20/16 0611 Signed Impressions: Service Date/Time: September 06:31 - CONCLUSION: Improvement in the subdural interhemispheric blood. No new hemorrhage observe. Judd Sheets Jr., MD Cervical Spine MRI 09/20/16 0000 Signed Impressions: Service Date/Time: September 11:38 - CONCLUSION: Stable MR appearance of the cervical spine with no evidence of acute traumatic injury or other acute process. Buster Qureshi MD Brain MRI 09/20/16 0000 Signed Impressions: Service Date/Time: September 11:38 - CONCLUSION: 1. Cerebral atrophy. 2. Minimal chronic ischemic small vessel vasculopathy. 3. The previously identified hemorrhage appears to have resolved. Angel Mcdonald MD Maxillofacial CT 09/19/16 1300 Signed Impressions: Service Date/Time: Monday, September 19, 2016 13:16 - CONCLUSION: 1. Bilateral nasal bone fractures without significant displacement. Owen Salgado MD Chest X-Ray 09/19/16 1300 Signed Impressions: Service Date/Time: Monday, September 19, 2016 13:34 - CONCLUSION: 1. Minimal basilar atelectasis or scarring. Heart size upper limits normal. Mildly tortuous aorta. Owen Salgado MD Cervical Spine CT 09/19/16 1300 Signed Impressions: Service Date/Time: Monday, September 19, 2016 13:16 - CONCLUSION: 1. There are postsurgical changes in the upper cervical spine. The patient is post laminectomy at C2/3 and C3/4. 2. The C5-6 level is fused. 3. There are degenerative changes throughout the cervical spine. There is no fracture seen. Candido Becerra MD Medical Decision Making Impression and Plan Impression: 1. Traumatic brain injury with interhemispheric subdural hematoma-mostly resolved on MRI 09/20/16 Possible syncopal episodes Gait unsteadiness. History of cervical spine lesion, status post surgical decompression. 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 Plan: Findings discussed with patient. Some persistent gait unsteadiness Physical therapy notes reviewed. Patient felt to be at increased risk for falls Continue therapy Monitor neurologic function Discharge planning-plan inpatient rehabilitation. Patient feels that he is ambulating well enough to go home Bk Snowden MD Sep 22, 2016 22:50
[2016-09-23] VITALS: BP_SYST 156; BP_SYST 169; BP_DIAS 89; BP_DIAS 98; PULSE 68; PULSE 70; RESP 18; RESP 20; TEMP 97.1; TEMP 98.5; O2SAT 100; O2SAT 95
[2016-09-23 06:51] LABS: HEMATOCRIT 33.9 % (39.0-51.0); MEAN CELL VOLUME 86.2 FL (80.0-100.0); MEAN CORPUSCULAR HEMOGLOBIN 29.6 PG (27.0-34.0); MEAN CORPUSCULAR HGB CONC 34.3 % (32.0-36.0); PLATELET COUNT 152 TH/MM3 (150-450); RED BLOOD COUNT 3.93 MIL/MM3 (4.50-5.90); RED CELL DISTRIBUTION WIDTH 14.8 % (11.6-17.2); REVIEW FLAG FINAL; WHITE BLOOD COUNT 8.8 TH/MM3 (4.0-11.0)
[2016-09-23 07:00] VITALS: BP 171/95; PULSE 67; PULSE 74; RESP 20; TEMP 95.7; O2SAT 97
[2016-09-23 07:10] LABS: BICARBONATE 29.1 MEQ/L (21.0-32.0)
[2016-09-23 08:00] VITALS: PULSE 74
[2016-09-23] MEDS: PANTOPRAZOLE SOD 40 MG DELAYED RELEASE TAB PO SCH (08:14)
[2016-09-23] MEDS: POTASSIUM CHLORIDE 10 MEQ CONTROLLED RELEASE TAB PO SCH ×2 (08:14)
[2016-09-23] MEDS: SERTRALINE HCL 100 MG TAB PO SCH (08:14)
[2016-09-23] MEDS: FLUDROCORTISONE ACETATE 0.1 MG TAB PO SCH (08:14)
[2016-09-23] MEDS: SODIUM CHLORIDE 0.9% FLUSH 5 ML FLUSH FLUSH SCH (08:14)
[2016-09-23 11:00] VITALS: BP 155/82; PULSE 66; RESP 20; TEMP 98.4; O2SAT 96
--- NOTE | 2016-09-23 11:36 | HHI.PR ---
Subjective Remarks Patient is feeling good wants to go home Walking with a walker Offering no complaint at present Review of system for 12 point system otherwise unremarkable Objective Objective Results - Vital Signs Date Time Temp Pulse Resp B/P Pulse Ox O2 Delivery O2 Flow Rate FiO2 09/23/16 08:00 74 09/23/16 07:00 74 09/23/16 07:00 95.7 67 20 171/95 97 09/23/16 00:00 98.5 70 20 169/89 100 09/23/16 00:00 97.1 68 18 156/98 95 09/22/16 20:00 98.7 62 26 153/84 96 09/22/16 18:00 72 09/22/16 16:00 70 09/22/16 15:45 96.7 70 20 200/105 98 09/22/16 12:00 64 I/O 09/22/16 09/22/16 09/22/16 09/23/16 09/23/16 09/23/16 07:00 15:00 23:00 07:00 15:00 23:00 Intake Total 480 ml 480 ml 240 ml Output Total 60 ml Balance 420 ml 480 ml 240 ml Intake Oral 480 ml 480 ml 240 ml Output Urine Total 60 ml # Voids 3 2 3 # Bowel Movements 0 Result Diagram: 09/23/16 0536 09/23/16 0536 Imaging Last Impressions Maxillofacial CT 09/19/16 1300 Signed Impressions: Service Date/Time: Monday, September 19, 2016 13:16 - CONCLUSION: 1. Bilateral nasal bone fractures without significant displacement. Owen Salgado MD Head CT 09/19/16 1300 Signed Impressions: Service Date/Time: Monday, September 19, 2016 13:16 - CONCLUSION: 1. Small amount of interhemispheric subdural hemorrhage without mass effect or midline shift. 2. Right nasal bone fracture. Owen Salgado MD Chest X-Ray 09/19/16 1300 Signed Impressions: Service Date/Time: Monday, September 19, 2016 13:34 - CONCLUSION: 1. Minimal basilar atelectasis or scarring. Heart size upper limits normal. Mildly tortuous aorta. Owen Salgado MD Cervical Spine CT 09/19/16 1300 Signed Impressions: Service Date/Time: Monday, September 19, 2016 13:16 - CONCLUSION: 1. There are postsurgical changes in the upper cervical spine. The patient is post laminectomy at C2/3 and C3/4. 2. The C5-6 level is fused. 3. There are degenerative changes throughout the cervical spine. There is no fracture seen. Candido Becerra MD Other Results Laboratory Tests Test 09/23/16 05:36 White Blood Count 8.8 Red Blood Count 3.93 Hemoglobin 11.6 Hematocrit 33.9 Mean Corpuscular Volume 86.2 Mean Corpuscular Hemoglobin 29.6 Mean Corpuscular Hemoglobin 34.3 Concent Red Cell Distribution Width 14.8 Platelet Count 152 Mean Platelet Volume 7.5 Sodium Level 140 Potassium Level 4.0 Chloride Level 103 Carbon Dioxide Level 29.1 Anion Gap 8 Blood Urea Nitrogen 22 Creatinine 1.18 Estimat Glomerular Filtration 60 Rate Random Glucose 90 Calcium Level 8.8 Physical Exam Physical Exam GENERAL: This is a well-nourished, well-developed patient, in no apparent distress. SKIN: Abrasions noted to nose, legs. HEAD: Right periorbital swelling and bruising, laceration to right eyebrow. Abrasion to forehead and bridge of nose. . Normocephalic. No temporal or scalp tenderness. EYES: Pupils equal round and reactive. Extraocular motions intact. No scleral icterus. No injection or drainage. Some swelling of the bilateral eyelids ENT: Nose swelling noted. Airway patent. NECK: Trachea midline. No JVD or lymphadenopathy. Supple, nontender, no meningeal signs. CARDIOVASCULAR: Regular rate and rhythm without murmurs, gallops, or rubs. RESPIRATORY: Clear to auscultation. Breath sounds equal bilaterally. No wheezes , rales, or rhonchi. GASTROINTESTINAL: Abdomen soft, non-tender, nondistended. No hepato-splenomegaly , or palpable masses. No guarding. MUSCULOSKELETAL: Extremities without clubbing, cyanosis, or edema. No joint tenderness, effusion, or edema noted. No calf tenderness. Negative Homans sign bilaterally. NEUROLOGICAL: Awake, oriented x 3. No focal deficits. Answering questions appropriately. Speech clear. Gait not tested. A/P Assessment and Plan (1) Syncopal episodes (2) Subdural hemorrhage (3) Eyebrow laceration (4) Nasal bone fractures (5) Uncontrolled hypertension (6) CKD (chronic kidney disease) stage 3, GFR 30-59 ml/min (7) Postural hypotension (8) hx of prior brain surgery for benign tumor removal Plan 81 year old male with hx of syncope, postural hypotension admitted after having a syncopal episode while walking dog, evaluated in emergency room, CT findings of the small interhemispheric subdural hemorrhage without mass effect. Neurologically intact. Neuro checks per protocol Neurosurgery consultation, appreciated Consultation by neurology appreciated as well as cardiology -Repeat CT improved. Neurosurgery cleared for discharge -PT/OT -CM for discharge planning, patient doesn't want to go to [facility] tomorrow. Discussed with on phone she is also agreeable with . So will discharge to home with home health care and physical therapy at home Uncontrolled HTN. Has history of postural hypotension, on Florinef. 0.2 mg twice a day -Due to postural hypotension, Dr. Duron recommends to keep BP on higher side , SBP 160 to 170s. Discussed with him on phone September 22 -Will dc PRN BP meds -Continue Florinef -Julio syed Chronic kidney disease stage III, patient unaware of history, appears stable Creat improved -Off IVF Prior history of brain cyst removal -Monitor Avoid anticoagulation, SCDs for DVT prophylaxis PPI for GI prophylaxis DC home today with home health care D/W RN D/W pt. and discussed with on phone. Explained to them his condition and chances of fall at home. Understood and they will take this chance Chace Cherry MD Sep 23, 2016 11:36
--- NOTE | 2016-09-23 11:38 | HHI.FF ---
Face to Face Verification Diagnosis: (1) Subdural hemorrhage (2) Syncopal episodes (3) Eyebrow laceration (4) Nasal bone fractures (5) hx of prior brain surgery for benign tumor removal (6) Hx of orthostatic hypotension (7) CKD (chronic kidney disease) stage 3, GFR 30-59 ml/min (8) Postural hypotension Physical Therapy Order: Evaluate and Treat Home Health Nursing Order: Medical education Nursing assessment with vital signs I have seen patient Shaggy Godfrey on 09/23/16. My clinical findings support the need for the requested home health care services because: Ltd mobility - disease progression I certify that my clinical findings support that this patient is homebound because: Unsafe to leave home unassisted Chace Cherry MD Sep 23, 2016 11:38
--- NOTE | 2016-09-24 16:24 | HHI.DS ---
Discharge Summary Admission Date Sep 19, 2016 at 14:14 Discharge Date: Sep 23, 2016 Admitting Diagnosis syncopal episode; SDH; R eyebrow laceration; nasal bone fx (1) Subdural hemorrhage (2) Syncopal episodes (3) Uncontrolled hypertension (4) Eyebrow laceration (5) Nasal bone fractures (6) hx of prior brain surgery for benign tumor removal (7) CKD (chronic kidney disease) stage 3, GFR 30-59 ml/min (8) Postural hypotension CBC/BMP: 09/23/16 0536 09/23/16 0536 Significant Findings Laboratory Tests Test 09/23/16 05:36 Red Blood Count 3.93 MIL/MM3 (4.50-5.90) Hemoglobin 11.6 GM/DL (13.0-17.0) Hematocrit 33.9 % (39.0-51.0) Blood Urea Nitrogen 22 MG/DL (7-18) Estimat Glomerular Filtration 60 ML/MIN (>89) Rate Imaging Last Impressions Head CT 09/20/16 0611 Signed Impressions: Service Date/Time: September 06:31 - CONCLUSION: Improvement in the subdural interhemispheric blood. No new hemorrhage observe. Judd Sheets Jr., MD Cervical Spine MRI 09/20/16 0000 Signed Impressions: Service Date/Time: September 11:38 - CONCLUSION: Stable MR appearance of the cervical spine with no evidence of acute traumatic injury or other acute process. Buster Qureshi MD Brain MRI 09/20/16 0000 Signed Impressions: Service Date/Time: September 11:38 - CONCLUSION: 1. Cerebral atrophy. 2. Minimal chronic ischemic small vessel vasculopathy. 3. The previously identified hemorrhage appears to have resolved. Angel Mcdonald MD Maxillofacial CT 09/19/16 1300 Signed Impressions: Service Date/Time: Monday, September 19, 2016 13:16 - CONCLUSION: 1. Bilateral nasal bone fractures without significant displacement. Owen Salgado MD Chest X-Ray 09/19/16 1300 Signed Impressions: Service Date/Time: Monday, September 19, 2016 13:34 - CONCLUSION: 1. Minimal basilar atelectasis or scarring. Heart size upper limits normal. Mildly tortuous aorta. Owen Salgado MD Cervical Spine CT 09/19/16 1300 Signed Impressions: Service Date/Time: Monday, September 19, 2016 13:16 - CONCLUSION: 1. There are postsurgical changes in the upper cervical spine. The patient is post laminectomy at C2/3 and C3/4. 2. The C5-6 level is fused. 3. There are degenerative changes throughout the cervical spine. There is no fracture seen. 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 Patient was brought in after he had a witnessed syncopal episode and passed out while walking his dog. Patient fell face forward, hit his face on the ground. He knew he was about to pass out, denies any dizziness , no palpitations, no chest pain, no shortness of breath. The bystander who witnessed fall, noted patient first tripped and she offered assistance which he refused. Right after that he fell. According to who is providing most details, patient has had poor balance and syncope and has had extensive evaluation by Dr. Breen and Domi. He has had an echo, ultrasound, Holter monitoring, stress. The only thing they can attribute to the falls was that patient was noted with orthostatic hypotension with minimal changes. Patient has been on Florinef. He has received outpatient rehabilitation for balancing problems, currently he was not getting any therapy. endorses that Saturday patient was feeling a little shaky but did go and walk the dog as he usually does. 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 Prior to surgery, patient was not able to walk. They were told that this was a defect and that he still did have some residual cyst in place. During the course of the emergency room evaluation, patient had imaging studies. Maxillofacial CT showed bilateral nasal bone fractures without significant displacement. CT of the head showed a small amount of interhemispheric subdural hemorrhage without mass effect or midline shift and right nasal fracture. Cervical spine CT showed postsurgical changes in the upper cervical spine with postlaminectomy at C2-C3 C3-C4. C5-C6 is fused. No fractures were noted. Laboratory workup was remarkable for elevated creatinine,this doesn't appeared to be not a new finding. GFR is 48. CBC unremarkable. Blood pressure was noted elevated, up to 190s. Telemetry monitoring shows sinus rhythm. Laceration to the bridge of the nose and the right eyebrow where suture. Patient received Vasotec to control blood pressure. Dr. Herman evaluated the patient and recommended serial CT scanning to monitor bleeding. Recommended neurology consultation as well. Patient was admitted for further evaluation and treatment for: (1) Syncopal episodes (2) Subdural hemorrhage (3) Eyebrow laceration (4) Nasal bone fractures (5) Uncontrolled hypertension (6) CKD (chronic kidney disease) stage 3, GFR 30-59 ml/min (7) Postural hypotension (8) hx of prior brain surgery for benign tumor removal Plan 81 year old male with hx of syncope, postural hypotension admitted after having a syncopal episode while walking dog, evaluated in emergency room, CT findings of the small interhemispheric subdural hemorrhage without mass effect. Neurologically intact. Neuro checks per protocol Neurosurgery consultation, appreciated, recommended neurology anthony. Ordered follow up CT which showed resolution of bleed. Likely Parafalcine SDH Consultation by neurology appreciated as well as cardiology -Repeat CT improved. Neurosurgery cleared for discharge -PT/OT were initiated and recommendations noted. -CM for discharge planning, patient doesn't want to go to to [facility] facility, not accepted at [facility]. Attending discussed with on phone, she is also agreeable with . CM arranged home health care and physical therapy at home Uncontrolled HTN. Has history of postural hypotension, on Florinef. 0.2 mg twice a day -Due to postural hypotension, Dr. Duron recommended to keep BP on higher side, SBP 160 to 170s. 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 Avoided anticoagulation, SCDs for DVT prophylaxis PPI for GI prophylaxis Pt. recommended SNF, pt. and wanted to go home. He had significant orthostatic hypotension, instructed to get up slowly, use walker. His condition and chances of fall at home were discussed, he and understood and they will take the chance Pt. cleared by all consultants pt. discharged home in stable condition. Pt Condition on Discharge: Good Discharge Disposition: Disch w/ Home Health Serv Discharge Instructions DIET: Follow Instructions for: Heart Healthy Diet Activities you can perform: Weight Bearing as Babita Follow up Referrals: Cardiology - 1 Week Neurology - 3 Weeks PCP Follow-up - 1 Week Continued Medications: Clonazepam (Klonopin) 1 Mg Tab 1 MG PO HS #60 Ref 0 TAB Fludrocortisone (Fludrocortisone) 0.1 Mg Tab 0.2 MG PO BID #30 Ref 0 TAB Potassium Chloride ER (K-Tab) 10 Meq Tab 30 MEQ PO BID Electrolyte Replacement #30 Ref 0 TAB Sertraline (Sertraline) 100 Mg Tab 100 MG PO DAILY #30 Ref 0 TAB Margot Ramos Sep 24, 2016 16:24
== END 2016-09-23 14:35 | disposition home health service (06) | DRG 87 ==
LOC: NEPA 11:06 → NEDA 14:14 → HIME 17:55 → N05A 09-21 01:25
PROVIDERS: ADMIT Specialist; ATTEND Specialist
PROC: 0HQ1XZZ Repair Face Skin, External Approach (ICD-10-PCS; principal; 2016-09-19)
PROC: 0HQ1XZZ Repair Face Skin, External Approach (ICD-10-PCS; 2016-09-19)
DX: S06.5X0A Traumatic subdural hemorrhage without loss of consciousness, initial encounter (principal); N18.3 Chronic kidney disease, stage 3 (moderate); S01.111A Laceration without foreign body of right eyelid and periocular area, initial encounter; S01.21XA Laceration without foreign body of nose, initial encounter; I12.9 Hypertensive chronic kidney disease with stage 1 through stage 4 chronic kidney disease, or unspecified chronic kidney disease; S02.2XXA Fracture of nasal bones, initial encounter for closed fracture; R79.89 Other specified abnormal findings of blood chemistry; I95.1 Orthostatic hypotension; F32.9 Major depressive disorder, single episode, unspecified; I71.4 Abdominal aortic aneurysm, without rupture; K21.9 Gastro-esophageal reflux disease without esophagitis; R26.81 Unsteadiness on feet; Z91.81 History of falling; Z87.891 Personal history of nicotine dependence; Z82.49 Family history of ischemic heart disease and other diseases of the circulatory system; Z86.011 Personal history of benign neoplasm of the brain; W01.0XXA Fall on same level from slipping, tripping and stumbling without subsequent striking against object, initial encounter; Y93.K1 Activity, walking an animal
CPT/HCPCS: 12013; 70450; 70486; 70551; 71010; 72125; 72141; 80048; 81001; 82550; 82552; 83735; 84100; 84443; 84484; 85007; 85025; 85027; 85610; 85730; 87641; 93005; 95819; J7030

== ENCOUNTER 2018-08-11 07:47 | Observation (INO) ==
[2018-08-11] MEDS ORDERED: Sod Chloride 0.9% Inj 1,000 ML IV.SIG ONE (07:50)
[2018-08-11 07:56] VITALS: TEMP 98.5
--- NOTE | 2018-08-11 08:02 | ED ---
HPI General Chief Complaint: Dizziness Stated Complaint: medical Time Seen by Provider: 08/11/18 07:50 Source: patient and EMS Mode of arrival: EMS Limitations: no limitations History of Present Illness HPI Narrative: Patient is an 82-year-old male, past medical history significant for hypertension, who presents with complaint of dizziness. He states that over the last 2-3 months he has had intermittent dizziness where it feels like the room is spinning and like he is going to pass out. This often occurs when he is standing at which time it is accompanied by posterior neck pain. He does not have any chest pain or shortness of breath when it occurs. He states that if he lies flat and still it does not come on "at least not as much."He has had these issues previously and states that several years ago it caused him to have syncope and fall at which time he did sustain an intracranial hemorrhage. EMS reports that his blood pressure on their arrival while he was seated was in the 130s but upon standing his blood pressure decreased to the 60s. They gave him 500 cc normal saline bolus in route. They state that his heart rate and rhythm were variable with frequent PVCs. Patient states that he feels well while seated at this time. complaint: Reports dizziness, lightheadedness and near syncope Onset (ago): month(s) Timing: sudden onset Description: Reports lightheadedness and off-balance History of similar episodes: Yes History of trauma: No Severity: moderate Relieving factors: remaining still Exacerbating factors: other Associated symptoms: Reports other Related Data Home Medications Medication Instructions Recorded Confirmed carbidopa-levodopa 1 tab PO TID 08/11/18 08/11/18 fludrocortisone 0.2 mg PO BID 08/11/18 08/11/18 potassium chloride [Klor-Con 10] 30 meq PO BID 08/11/18 08/11/18 sertraline 50 mg PO DAILY 08/11/18 08/11/18 sodium chloride 1,000 mg PO DAILY 08/11/18 08/11/18 Allergies Allergy/AdvReac Type Severity Reaction Status Date / Time ciprofloxacin Allergy Mild Unverified 04/30/17 18:09 Review of Systems ROS: all other systems reviewed are negative [facility] Medical History Medical History Parkinson disease (Chronic) Traumatic intracranial hemorrhage (Resolved) Social History Social History Second Hand Smoke Exposure: No Smoking Status: Former smoker Tobacco Type: Cigarettes How Often Do You Have a Drink Containing Alcohol: Never Recent Travel in [facility] within the Last 8 Weeks: No Recent Out of Country Travel within the Last 8 Weeks: No Exam Narrative Exam Narrative: GENERAL: Well-appearing, elderly male in no acute distress SKIN: Focused skin assessment warm/dry. HEAD: Atraumatic. Normocephalic. EYES: Pupils equal and round. No scleral icterus. No injection or drainage. ENT: No nasal bleeding or discharge. Mucous membranes pink and moist. NECK: Trachea midline. No JVD. CARDIOVASCULAR: Regular rate and rhythm. No murmur appreciated. Intact and equal peripheral pulses. RESPIRATORY: No accessory muscle use. Clear to auscultation. Breath sounds equal bilaterally. GASTROINTESTINAL: Abdomen soft, non-tender, nondistended. Hepatic and splenic margins not palpable. MUSCULOSKELETAL: No obvious deformities. No clubbing. No cyanosis. No edema. NEUROLOGICAL: Awake and alert. No obvious cranial nerve deficits. Motor within normal limits. Normal sensation. No dysmetria nor ataxia. Normal speech. PSYCHIATRIC: Appropriate mood and affect; insight and judgment normal. Course Initial Documented Vital Signs Temperature 98.5 F 08/11/18 07:52 Pulse Rate 75 08/11/18 07:52 Respiratory Rate 17 08/11/18 07:52 Blood Pressure 188/109 H 08/11/18 07:52 Pulse Oximetry 98 08/11/18 07:52 Last Documented Vital Signs Temperature 98.5 F 08/11/18 07:52 Pulse Rate 59 L 08/11/18 11:50 Respiratory Rate 17 08/11/18 11:50 Blood Pressure 184/93 H 08/11/18 11:50 Pulse Oximetry 98 08/11/18 11:50 Medical Decision Making MDM Narrative Medical decision making narrative: Patient is a an 82-year-old male who presents with light of dizziness and general ill feeling. EMS reports orthostatic hypotension and given 500 cc fluid prior to arrival here. He has received further fluid boluses while in the emergency department and has actually been hypertensive. EKG is without acute ischemic changes. Initial troponin was negative. CT of the head does not reveal an acute abnormality. Labs do reveal a slight CHON. He has been admitted for CHON and to have an MRI to ensure that these episodes of dizziness are not caused by a stroke/TIA. Medical Screen Exam Complete: Yes Emergency Medical Condition: Yes Differential Diagnosis Differential Diagnosis: Differential diagnosis includes but is not limited to orthostatic hypotension, dissection, cardiac ischemia. Medical Records Medical records reviewed: Yes I reviewed the patient's medical records. Lab Data Lab results reviewed: Yes I reviewed the patient's lab results. Result diagrams: 08/11/18 08:00 08/11/18 08:00 Lab Results 08/11/18 08/11/18 08/11/18 Range/Units 08:00 08:00 08:00 WBC 7.8 (4.0-11.0) th/mm3 RBC 3.24 L (4.50-5.90) mil/mm3 Hgb 9.7 L (13.0-17.0) gm/dL Hct 28.3 L (39.0-51.0) % MCV 87.3 (80.0-100.0) fL MCH 29.9 (27.0-34.0) pg MCHC 34.2 (32.0-36.0) % RDW 15.3 (11.6-17.2) % Plt Count 172 (150-450) th/mm3 MPV 6.7 L (7.0-11.0) fL Neut % (Auto) 64.7 (16.0-70.0) % Lymph % (Auto) 23.0 (9.0-44.0) % [place] % (Auto) 9.0 H (0.0-8.0) % Eos % (Auto) 2.2 (0.0-4.0) % Baso % (Auto) 1.1 (0.0-2.0) % Neut # (Auto) 5.1 (1.8-7.7) th/mm3 Lymph # (Auto) 1.8 (1.0-4.8) th/mm3 [place] # (Auto) 0.7 (0.0-0.9) th/mm3 Eos # (Auto) 0.2 (0.0-0.4) th/mm3 Baso # (Auto) 0.1 (0.0-0.2) th/mm3 WBC Differential . Differential Comment Auto diff final PT 10.8 (9.8-11.6) sec INR 1.1 Ratio Sodium (136-145) meq/L Potassium (3.5-5.1) meq/L Chloride (98-107) meq/L Carbon Dioxide (21.0-32.0) meq/L Anion Gap (5-15) meq/L BUN (7-18) mg/dL Creatinine (0.60-1.30) mg/dL Estimated GFR (>89) mL/min Random Glucose (74-106) mg/dL Calcium (8.5-10.1) mg/dL Troponin I Cancelled Urine Color (Yellw/Straw) Urine Clarity (Clear) Urine pH (5.0-8.5) Ur Specific [place] (1.002-1.035) Urine Protein (Neg-Trace) mg/dL Urine Glucose (UA) (Negative) mg/dL Urine Ketones (Negative) mg/dL Urine Occult Blood (Negative) Urine Nitrate (Negative) Urine Bilirubin (Negative) Urine Urobilinogen (Less than 2) mg/dL Ur Leukocyte Esterase (Negative) Urine RBC (0-3) /hpf Urine WBC (0-5) /hpf Hyaline Casts (0-3) /lpf Urine Mucus (Occasional) /lpf Micro UA Comment Ur Microscopic Review Urine Culture Comments 08/11/18 08/11/18 Range/Units 08:00 09:30 WBC (4.0-11.0) th/mm3 RBC (4.50-5.90) mil/mm3 Hgb (13.0-17.0) gm/dL Hct (39.0-51.0) % MCV (80.0-100.0) fL MCH (27.0-34.0) pg MCHC (32.0-36.0) % RDW (11.6-17.2) % Plt Count (150-450) th/mm3 MPV (7.0-11.0) fL Neut % (Auto) (16.0-70.0) % Lymph % (Auto) (9.0-44.0) % [place] % (Auto) (0.0-8.0) % Eos % (Auto) (0.0-4.0) % Baso % (Auto) (0.0-2.0) % Neut # (Auto) (1.8-7.7) th/mm3 Lymph # (Auto) (1.0-4.8) th/mm3 [place] # (Auto) (0.0-0.9) th/mm3 Eos # (Auto) (0.0-0.4) th/mm3 Baso # (Auto) (0.0-0.2) th/mm3 WBC Differential Differential Comment PT (9.8-11.6) sec INR Ratio Sodium 142 (136-145) meq/L Potassium 3.0 L (3.5-5.1) meq/L Chloride 106 (98-107) meq/L Carbon Dioxide 29.8 (21.0-32.0) meq/L Anion Gap 6 (5-15) meq/L BUN 26 H (7-18) mg/dL Creatinine 1.63 H (0.60-1.30) mg/dL Estimated GFR 41 L (>89) mL/min Random Glucose 100 (74-106) mg/dL Calcium 8.0 L (8.5-10.1) mg/dL Troponin I Less than 0.02 L Urine Color Straw (Yellw/Straw) Urine Clarity Clear (Clear) Urine pH 6.0 (5.0-8.5) Ur Specific [place] 1.009 (1.002-1.035) Urine Protein Negative (Neg-Trace) mg/dL Urine Glucose (UA) Negative (Negative) mg/dL Urine Ketones Negative (Negative) mg/dL Urine Occult Blood Small H (Negative) Urine Nitrate Negative (Negative) Urine Bilirubin Negative (Negative) Urine Urobilinogen Less than 2 (Less than 2) mg/dL Ur Leukocyte Esterase Negative (Negative) Urine RBC 1 (0-3) /hpf Urine WBC Less than 1 (0-5) /hpf Hyaline Casts 4 (0-3) /lpf Urine Mucus Few H (Occasional) /lpf Micro UA Comment Culture not ind Ur Microscopic Review Not Reportable Urine Culture Comments Culture not ind Imaging Data Attestation: I personally reviewed and interpreted this imaging study as follows : Radiologist's impression: Chest X-Ray 08/11/18 07:50 CONCLUSION: No acute cardiopulmonary findings. Head CT 08/11/18 07:50 CONCLUSION: 1. No acute intracranial abnormality. . Head CTA 08/11/18 07:50 CONCLUSION: Negative CTA Head. . Neck CTA 08/11/18 07:50 CONCLUSION: 1. 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 2. No hemodynamically significant carotid artery stenosis identified. 3. Dominant right vert. The vertebral circulation is widely patent bilaterally. 4. No evidence of carotid or vertebral dissection. ECG Data EKG Prior to Arrival: No Attestation: I personally reviewed and interpreted this ECG as follows: (Sinus rhythm at a rate of 80 bpm. There are no ST or T wave changes. There are premature supraventricular and ventricular complexes.) Discharge Plan Discharge Disposition Patient Disposition: 30 Still Patient Discharge Condition Condition: Stable Discharge Details Diagnosis: Dizziness, CHON (acute kidney injury) Physicians Team ED Provider: Ofelia Lew Primary Care Provider: Rafa Moses Attending Provider: Lola Scott Discharge Interventions Interventions: Vital Signs Last Done: 08/11/18 11:50 Status ED Status: Admitted Observation Patient
[2018-08-11 08:18] LABS: Baso # (Auto) 0.1 th/mm3 (0.0-0.2); Baso % (Auto) 1.1 % (0.0-2.0); Eos # (Auto) 0.2 th/mm3 (0.0-0.4); Eos % (Auto) 2.2 % (0.0-4.0); Hematocrit 28.3 % (39.0-51.0); Hemoglobin 9.7 gm/dL (13.0-17.0); Lymph # (Auto) 1.8 th/mm3 (1.0-4.8); Mean Corpuscular HGB Conc 34.2 % (32.0-36.0); Mean Corpuscular Hemoglobin 29.9 pg (27.0-34.0); Mean Corpuscular Volume 87.3 fL (80.0-100.0); Mean Platelet Volume 6.7 fL (7.0-11.0); Mono # (Auto) 0.7 th/mm3 (0.0-0.9); Neut # (Auto) 5.1 th/mm3 (1.8-7.7); Neut % (Auto) 64.7 % (16.0-70.0); Platelet Count 172 th/mm3 (150-450); Red Blood Count 3.24 mil/mm3 (4.50-5.90); Red Cell Distribution Width 15.3 % (11.6-17.2); White Blood Count 7.8 th/mm3 (4.0-11.0)
[2018-08-11 08:29] LABS: INR 1.1 Ratio; Prothrombin Time 10.8 sec (9.8-11.6)
--- NOTE | 2018-08-11 08:31 | XR ---
EXAM DATE: 08/11/2018 8:25 AM EST AGE/SEX: 82 years / Male INDICATIONS: . Syncope, low blood pressure, headaches, back of neck at base of skull pains. CLINICAL DATA: This is the patient's initial encounter. Patient reports that signs and symptoms have been present for 1 day and indicates a pain score of 0/10. MEDICAL/SURGICAL HISTORY: . Hypotension . COMPARISON: [facility] [place], CHEST SINGLE AP, 09/19/2016. . FINDINGS: PA and lateral views of the chest demonstrate the lungs to be symmetrically aerated without evidence of mass, infiltrate or effusion. The cardiomediastinal contours demonstrate the heart to be at the up per limits of normal in size. Osseous structures are intact. CONCLUSION: No acute cardiopulmonary findings. Electronically signed by: Candido Becerra MD 08/11/2018 8:29 AM EST
[2018-08-11 08:34] LABS: Anion Gap 6 meq/L (5-15); Blood Urea Nitrogen 26 mg/dL (7-18); Carbon Dioxide 29.8 meq/L (21.0-32.0); Chloride 106 meq/L (98-107); Glomerular Filtration Rate 41 mL/min (>89); Glucose,Random 100 mg/dL (74-106); Sodium 142 meq/L (136-145)
[2018-08-11 08:45] VITALS: RESP 17
[2018-08-11 10:01] LABS: Bilirubin,Urine Negative (Negative); Clarity,Urine Clear (Clear); Color,Urine Straw (Yellw/Straw); Glucose,Urine (UA) Negative (Negative); Hyaline Casts,Urine 4 /lpf (0-3); Leukocyte Esterase,Urine Negative (Negative); Mucus,Urine Few /lpf (Occasional); Nitrite,Urine Negative (Negative); Specific Gravity,Urine 1.009 (1.002-1.035)
--- NOTE | 2018-08-11 11:23 | CT ---
EXAM DATE: 08/11/2018 11:13 AM EST AGE/SEX: 82 years / Male INDICATIONS: Dizziness and posterior head pain. CLINICAL DATA: This is the patient's initial encounter. Patient reports that signs and symptoms have been present for 1 day and indicates a pain score of 6/10. MEDICAL/SURGICAL HISTORY: Hypertension. Parkinson's disease. None. RADIATION DOSE: 35.87 CTDI (mGy) [place] [facility]19[place]. . TECHNIQUE: CT of the head without contrast. Using automated exposure control and adjustment of the mA and/or kV according to patient size, radiation dose was kept as low as reasonably achievable to ob tain optimal diagnostic quality images. DICOM format image data is available electronically for revi ew and comparison. FINDINGS: Cerebrum: Atrophy. 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 The ventricles are n ormal for age. No evidence of midline shift, mass lesion, hemorrhage or acute infarction. No extraa xial fluid collections are seen. Posterior Fossa: The cerebellum and brainstem are intact. The 4th ventricle is midline. The cerebe llopontine angle is unremarkable. Extracranial: The visualized portion of the orbits is intact. Skull: The calvaria is intact. No evidence of skull fracture. CONCLUSION: 1. No acute intracranial abnormality. . Electronically signed by: Judd Sheets MD 08/11/2018 11:21 AM EST
--- NOTE | 2018-08-11 11:54 | CT ---
EXAM DATE: 08/11/2018 11:48 AM EST AGE/SEX: 82 years / Male INDICATIONS: Dissection. CLINICAL DATA: This is the patient's initial encounter. Patient reports that signs and symptoms have been present for 1 day and indicates a pain score of 3/10. MEDICAL/SURGICAL HISTORY: Hypertension. Parkinson's disease. None. RADIATION DOSE: 28.72 CTDI (mGy) ; Combined studies COMPARISON: [facility], CTA NECK W CONTRAST W 3D, 08/11/2018. . TECHNIQUE: Volumetric scanning was performed using a multi-row detector CT scanner during bolus infu sonia of 90 ml Omnipaque 350 (iohexol) nonionic water-soluble contrast as a cumulative dose for multi ple exams. The data was post processed with a variety of visualization algorithms including full vo lume maximum intensity projection, multi-planar sliding thin slab reformation, curved planar reformat ion, and surface rendering techniques. Using automated exposure control and adjustment of the mA and /or kV according to patient size, radiation dose was kept as low as reasonably achievable to obtain o ptimal diagnostic quality images. DICOM format image data is available electronically for review and comparison. FINDINGS: There is excellent visualization of the major intracranial arteries out to the second-order branch ve ssels. There is no evidence for aneurysm, vessel truncation or stenosis, and no evidence for vascula r malformation. CONCLUSION: Negative CTA Head. . Electronically signed by: Buster Qureshi MD 08/11/2018 11:53 AM EST
--- NOTE | 2018-08-11 11:55 | CT ---
EXAM DATE: 08/11/2018 11:50 AM EST AGE/SEX: 82 years / Male INDICATIONS: Dissection. CLINICAL DATA: This is the patient's initial encounter. Patient reports that signs and symptoms have been present for 1 day and indicates a pain score of 3/10. MEDICAL/SURGICAL HISTORY: Hypertension. Parkinson's disease. None. RADIATION DOSE: 28.72 CTDI (mGy) ; Combined studies [place] [facility] [place]/19/2016. . TECHNIQUE: Volumetric scanning was performed using a multirow detector CT scanner during bolus infus ion of 90 ml Omnipaque 350 (iohexol) nonionic water-soluble contrast as a cumulative dose for multip le exams. The data was postprocessed with a variety of visualization algorithms including full-volu me maximum intensity projection, multiplanar sliding thin-slab reformation, curved-planar reformation , and surface-rendering techniques. Using automated exposure control and adjustment of the mA and/or kV according to patient size, radiation dose was kept as low as reasonably achievable to obtain opti mal diagnostic quality images. DICOM format image data is available electronically for review and co mparison. Percent stenosis is calculated using the diameter of the stenotic region over the diameter of the nor mal distal internal carotid artery. FINDINGS: Aortic arch: The examination demonstrates normal anatomic branching of the great vessels from the arc h. The origins of the great vessels are widely patent. There is focal aneurysmal dilation of the dist al arch across the area of the ligamentum arteriosum. Maximum dimension of this is 4.8 cm. The descen ding thoracic aorta is only partially visualized but appears to return to a more normal caliber at 2. 7 cm. Right carotid: The right common carotid, internal carotid and external carotid circulation are widely patent. Left carotid: The left common carotid, internal carotid and external carotid circulation is widely pa tent. Vertebral circulation: The left vertebral is somewhat smaller in size than the right. Both are widely patent. The basilar is widely patent. CONCLUSION: 1. 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 2. No hemodynamically significant carotid artery stenosis identified. 3. Dominant right vert. The vertebral circulation is widely patent bilaterally. 4. No evidence of carotid or vertebral dissection. Electronically signed by: Candido Becerra MD 08/11/2018 11:54 AM EST
--- NOTE | 2018-08-11 12:45 | P.HPIM ---
History of Present Illness Primary Care Physician: Rafa Moses MD Chief Complaint: dizziness History of Present Illness: 82 yo M with h/o HTN,Parkinson's disease who presented to ER c/o dizziness. Patient reports h/o dizziness for the last 2 years especially on standing, has been on medication for this the name of which he cannot recall. He says dizziness got worse this past week. dizziness is worse when he sits up or stands. He has fallen twice this past week. He was dizzy with each episode and he passed out briefly. denies hitting his head on falling. He has no palpitations,chest pain or shortness of breath. He also reports poor balance which he attributes to Parkinson's. No diarrhea/vomiting. no fevers/chills. Patient called EMS this morning due to worsening dizziness, and reportedly when EMS arrived, his systolic BP on standing was found to be 60. He was given IV 500mls bolus and brought to ER. In the ER, patient noted to be hypertensive with systolic in 180-200 range, other vitals were stable. labs remarkable for elevated Cr 1.6. He received IV fluids. CT head negative. CTA head/neck were negative for vertabral or carotid dissection or blockages. He has an area of aneurysmal dilatation on distal aortic arch and proximal ascending aorta 4.8cm diameter. ROS is negative except for pain on rt side of his neck. Diagnosis (1) Hypertension: [facility] Medical History Medical History Parkinson disease (Chronic) Traumatic intracranial hemorrhage (Resolved) Social History Social History Second Hand Smoke Exposure: No Smoking Status: Former smoker Tobacco Type: Cigarettes How Often Do You Have a Drink Containing Alcohol: Never Recent Travel in [facility] within the Last 8 Weeks: No Recent Out of Country Travel within the Last 8 Weeks: No Immunization History Tetanus Immunization: <5 Years Medications and Allergies Allergies Allergy/AdvReac Type Severity Reaction Status Date / Time ciprofloxacin Allergy Mild Unverified 04/30/17 18:09 Home Medications Medication Instructions Recorded Confirmed Type carbidopa-levodopa 1 tab PO TID 08/11/18 08/11/18 History fludrocortisone 0.2 mg PO BID 08/11/18 08/11/18 History potassium chloride [Klor-Con 10] 30 meq PO BID 08/11/18 08/11/18 History sertraline 50 mg PO DAILY 08/11/18 08/11/18 History sodium chloride 1,000 mg PO DAILY 08/11/18 08/11/18 History Active Medications: Active Medications Lactulose (Lactulose Liq) 30 ml PO DAILY PRN PRN Reason: SEVERE CONSITIPATION Sennosides (Senokot) 17.2 mg PO Q12H PRN PRN Reason: Moderate Constipation Sodium Chloride (Ns Flush) 2 ml IV.FLUSH PRN PRN PRN Reason: FLUSH AFTER USING IV ACCESS Physical Exam Vital signs: Last Vital Signs Temp 98.5 F 08/11/18 07:52 Pulse 59 L 08/11/18 11:50 Resp 17 08/11/18 11:50 BP 184/93 H 08/11/18 11:50 Pulse Ox 98 08/11/18 11:50 Intake & Output 08/09/18 08/10/18 08/11/18 08/12/18 06:59 06:59 06:59 06:59 Intake Total 1000 / 1000 Balance 1000 / 1000 Weight 90.718 kg Narrative: GENERAL: elderly man, well-nourished, well-developed patient, in no acute distress. HEENT:not pale,anicteric, cris.no nystagmus CARDIOVASCULAR: Regular rate and rhythm without murmurs, gallops, or rubs. RESPIRATORY: Clear to auscultation. Breath sounds equal bilaterally. No wheezes , rales, or rhonchi. GASTROINTESTINAL: Abdomen soft, non-tender, nondistended. Normal active bowel sounds MUSCULOSKELETAL: Extremities without clubbing, cyanosis, or edema. NEURO: Alert & Oriented x4 to person, place, time, situation. Moves all ext x4. No focal neurological deficits. Results Labs CBC & Chem 7: 08/11/18 08:00 08/11/18 08:00 Imaging Impressions Chest X-Ray 08/11/18 07:50 CONCLUSION: No acute cardiopulmonary findings. Head CT 08/11/18 07:50 CONCLUSION: 1. No acute intracranial abnormality. . Head CTA 08/11/18 07:50 CONCLUSION: Negative CTA Head. . Neck CTA 08/11/18 07:50 CONCLUSION: 1. 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 2. No hemodynamically significant carotid artery stenosis identified. 3. Dominant right vert. The vertebral circulation is widely patent bilaterally. 4. No evidence of carotid or vertebral dissection. Caprini VTE Risk Assessment Caprini VTE Risk Assessment: Moderate/High Risk (score >= 2) Caprini Risk Assessment Model: Point Value = 1 Point Value = 2 Point Value = 3 Point Value = 5 Age 41-60 Minor surgery BMI > 25 kg/m2 Swollen legs Varicose veins or History of unexplained or recurrent spontaneous Oral contraceptives or hormone replacement Sepsis (< 1 month) Serious lung disease, including pneumonia (< 1 month) Abnormal pulmonary function Acute myocardial infarction Congestive heart failure (< 1 month) History of inflammatory bowel disease Medical patient at bed rest Age 61-74 Arthroscopic surgery Major open surgery (> 45 min) Laparoscopic surgery (> 45 min) Malignancy Confined to bed (> 72 hours) Immobilizing plaster cast Central venous access Age >= 75 History of VTE Family history of VTE Factor V Leiden Prothrombin [id number] Lupus anticoagulant Anticardiolipin antibodies Elevated serum homocysteine Heparin-induced thrombocytopenia Other congenital or acquired thrombophilia Stroke (< 1 month) Elective arthroplasty Hip, pelvis, or leg fracture Acute spinal cord injury (< 1 month) Prophylaxis Regimen: Total Risk Factor Score Risk Level Prophylaxis Regimen 0-1 Low Early ambulation 2 Moderate Order ONE of the following: *Sequential Compression Device (SCD) *Heparin 5000 units SQ BID 3-4 Higher Order ONE of the following medications: *Heparin 5000 units SQ TID *Enoxaparin/Lovenox 40 mg SQ daily (WT < 150 kg, CrCl > 30 mL/min) *Enoxaparin/Lovenox 30 mg SQ daily (WT < 150 kg, CrCl > 10-29 mL/min) *Enoxaparin/Lovenox 30 mg SQ BID (WT < 150 kg, CrCl > 30 mL/min) AND/OR *Sequential Compression Device (SCD) 5 or more Highest Order ONE of the following medications: *Heparin 5000 units SQ TID (Preferred with Epidurals) *Enoxaparin/Lovenox 40 mg SQ daily (WT < 150 kg, CrCl > 30 mL/min) *Enoxaparin/Lovenox 30 mg SQ daily (WT < 150 kg, CrCl > 10-29 mL/min) *Enoxaparin/Lovenox 30 mg SQ BID (WT < 150 kg, CrCl > 30 mL/min) AND *Sequential Compression Device (SCD) Assessment and Plan (1) Hypertension: Code(s): I10 - Essential (primary) hypertension Status: Deleted Plan 82 yo M with h/o HTN, Parkinson's disease, previous traumatic SDH, who presented with dizziness and recent falls/syncope episodes. 1.Dizziness with recent syncope episodes on standing-- --related to orthostatic hypotension. --patient had systolic BP 60 on standing this am. His BP seems labile, with severe orthostatic hypotension and systolic hypertension when recumbent, this is likely due to autonomic dysfunction which may be a result of his Parkinson's disease. His oral fluid intake is low, 30-40 oz/day--likely he has some volume depletion as well. --keep well hydrated with IV fluids --offer abdominal binder, graduated compression stokings. --continue fludrocortisone -check TSH, cortisol, B12 level. --we can consult his pressure washer to weigh in. --keep on telemetry. --PT/OT consult. 2. Acute kidney injury--likely pre renal due to poor PO intake. Patient received IV fluids. monitor. He has received contrast in the ER, monitor for TIO. avoid nephrotoxins. dose medication to GFR. 3. Parkinson's disease--resume home Carbidopa-Levodopa 4. 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 5.Chronic anemia-H/h seem lower than last recorded >1 year ago, patient has no melena. can check FOBT. monitor daily. DVT ppx.
[2018-08-11] MEDS ORDERED: Sodium Chloride 0.45 % Inj 1,000 ML IV.CONT SCH (13:27)
[2018-08-11 16:30] VITALS: BP 165/89; PULSE 76; O2SAT 96
--- NOTE | 2018-08-11 21:40 | MB ---
cc: Archie Gonzalez MD DATE: 08/11/2018 REFERRING PHYSICIAN: Lola Scott MD REASON FOR CONSULTATION: Lightheadedness and orthostatic hypotension. HISTORY OF PRESENT ILLNESS: Mr. Godfrey is an 82-year-old white male well known to me with a history of progressive orthostatic hypotension, Parkinson disease, autonomic insufficiency, abdominal aortic aneurysm, who presented to the emergency room earlier today after [facility] was called because of hypotension at home and lightheadedness. The patient says he has had a number of falls and brief syncopal episodes over the past few weeks. I last saw him in the office on 07/22/2018. These episodes have been reasonably stable, although persistent and recurrent. He has been reasonably well managed with fludrocortisone, but continues to have orthostatic symptoms. He is currently sitting up in bed and his blood pressure at this time is 186/94. He received 1 liter of normal saline prior to my arrival today for fluid hydration. He is currently in no distress and is asking to be discharged to home. He denies any chest discomfort or dyspnea at any point. He has had no recent injuries. He has had some chronic neck discomfort that is unchanged today. He tells me he has been taking his medications as directed and he has been occasionally using his abdominal binder and his lower extremity support stockings, although he has neither on here in the emergency room. PAST MEDICAL HISTORY: Significant for that mentioned above. In addition, he has had a history of a neurocentric cyst, abdominal aortic aneurysm, chronic kidney disease, headaches and neck pain, prostate disease, vertigo and snoring. He denies any prior history of myocardial infarction, heart failure, strokes, TIA, pulmonary or liver disease. PAST SURGICAL HISTORY: Includes that mentioned above and removal of a neurocentric cyst and a laminectomy in 01/1978, appendectomy 01/2000, laparoscopic cholecystectomy 12/2005, herniorrhaphy 06/2009, TUR prostate 2011. ALLERGIES: NITROFURANTOIN, CIPRO, ASHIA AND INTOLERANCE TO MIDODRINE, WHICH WAS TRIED A NUMBER OF TIMES, BUT THE PATIENT EXPERIENCES AN EXTREMELY PRURITIC SCALP, WHICH HAS CAUSED DISCONTINUATION ON 2 OCCASIONS AND THE PATIENT REFUSES THIS MEDICATION. CURRENT HOME MEDICATIONS: 1. Florinef 0.2 mg p.o. t.i.d. 2. Potassium supplements 30 mEq b.i.d. 3. Clonazepam 1 mg at bedtime. 4. Sertraline 50 mg daily. 5. Carbidopa/levodopa 25/100 mg p.o. t.i.d. FAMILY HISTORY: Father of lung cancer and heart failure in 1997 at the age of 80. Mother with dementia and congestive heart failure in 2002 at the age of 85. Sister at age 68 with a supranuclear palsy. SOCIAL HISTORY: The patient was a cigarette smoker, 1-2 packs per week for 38 years, quit in 1993. He consumes 1-2 beers or whiskeys once a week. Denies any illicit drug use. , living with his . He is quite sedentary and does no regular exercise. He is retired from the insurance industry. REVIEW OF SYSTEMS: Denies lower extremity edema or claudication. Denies fever, chills, night sweats, nausea, vomiting, diarrhea. Denies exertional or resting chest discomfort, orthopnea or PND type symptoms. Denies any bleeding or clotting disorders. Otherwise, except for that mentioned in the HPI, his complete 12-point review of systems is negative. PHYSICAL EXAMINATION: GENERAL: Reveals a 80-year-old overweight, white male sitting up in bed, in no distress at this time. VITAL SIGNS: Blood pressure 165/89 mmHg, heart rate is 76 and regular, respiratory rate 17, temperature 98.5, oxygen saturation 96% on room air. HEENT: Head is normocephalic and atraumatic. Pupils equal, round, reactive to light. Sclerae are anicteric. Extraocular movements intact. NECK: Supple. There is no adenopathy. There is no jugular venous distention at 45 degrees. Carotid upstrokes are normal. No bruits. Thyroid exam is normal. LUNGS: Clear. HEART: PMI is not displaced. S1, S2 are normal. No murmurs, gallops, clicks or rubs. ABDOMEN: Protuberant. Bowel sounds present. No hepatosplenomegaly, masses or bruits. Nontender. EXTREMITIES: No cyanosis, clubbing or edema. Perfusion is adequate in the upper and lower extremities. There are no femoral bruits. NEUROLOGIC: Nonfocal. A chest x-ray from earlier today showed the lungs symmetrically aerated without evidence of mass, infiltrate, or effusion. Heart size upper limits of normal. Osseous structures intact. No acute cardiopulmonary findings. EKG shows a sinus rhythm with occasional premature ventricular complexes and frequent premature atrial complexes. No significant ST abnormalities. Abnormal EKG. Compared to an EKG from my previous EKG, there is no significant change. PVCs and PACs are now seen. CT of the head: Cerebral atrophy, chronic lacunar infarcts involving the left basal ganglia, ventricles normal. No evidence of midline shift, mass lesion, hemorrhage or acute infarct. No extra-axial fluid collections are seen. CTA of the head: Negative CTA of the head. Neck CTA: Focal area of aneurysmal dilatation of the distal arch and proximal descending thoracic aorta with a maximum dimension of 4.8 cm. No hemodynamically significant carotid artery stenosis. Dominant right vertebral, vertebral circulation widely patent bilaterally. No evidence of carotid or vertebral dissection. Some testing available from my office earlier this year: Echocardiogram from 02/04/2018 showed left ventricular ejection fraction of 59% with mild concentric LVH. Left atrial enlargement, right ventricular dilatation, mild aortic sclerosis with mild +1 aortic insufficiency. Trace MR and TR. Right ventricular systolic pressure 18 mmHg. A pharmacologic nuclear stress test from 01/08/2018 showed at that time, a mildly reduced ejection fraction of 43%. No ischemia or infarct. LABORATORY DATA: CBC: White count 7.8, hemoglobin 9.7, hematocrit 28.3, platelet count 172,000. Coags normal. Chemistry: Sodium 142, potassium 3.0, chloride 106, CO2 29.8, BUN 26, creatinine 1.63, glucose 100, calcium 8.0. Troponin I less than 0.02. IMPRESSION: 1. Lightheadedness and near syncope secondary to progressive orthostatic hypotension, chronic. 2. Parkinson disease. 3. Intolerant to midodrine. 4. History of neurocentric cyst, status post removal. 5. Thoracic and abdominal aortic aneurysms, stable. 6. History of falls and subdural hematoma, resolved. 7. Overweight. 8. Chronic anemia, possibly secondary to chronic disease, rule out blood loss, of uncertain etiology. 9. Mild hypokalemia. 10. Chronic kidney disease. RECOMMENDATIONS: The patient has been hydrated with intravenous fluids over the past few hours. His blood pressure has improved. He will be restarted on his Florinef 0.2 mg t.i.d. Midodrine has been withheld because of previous intolerance. I have recommended that he place his thigh high support stockings on for 24 hours a day or at least while he is standing or sitting and continue to wear his abdominal binder. Do not treat supine or sitting hypertension. Continue to follow his anemia and electrolytes and renal function. It is possible he is slightly prerenal, which may be aggravating his orthostatic hypotension. Another possibility is that his Parkinson medication, carbidopa/levodopa, may also be aggravating his orthostatic hypotension and would consider reducing that medication ifat all possible. Replace potassium to 4.0 or greater. At this point, I have nothing else to offer as an inpatient and will follow up with him as an outpatient after discharge. I thin palliative care and/or or hospice should be considered at this time. I have discussed the case with the patient in detail as well as Dr. Martin, who is now covering in the emergency room, and the patient can probably be discharged back to home later today or tomorrow from my standpoint. Followup has been arranged. Thank you for allowing me to participate in the care of this patient. MD PILAR Wang/varghese , 06:38 PM , 07:00 PM [facility]
--- NOTE | 2018-08-12 06:40 | ECG ---
Date Performed: 08/11/2018 Time Performed: 07:51:25 PTAGE: 82 years EKG: Sinus rhythm WITH OCCASIONAL VENTRICULAR PREMATURE COMPLEXES WITH FREQUENT SUPRAVENTRICULAR PREMATURE COMPLEXES A BNORMAL RHYTHM ECG PREVIOUS TRACING : 09/19/2016 13.50 Since the previous tracing, no significant change noted DOCTOR: John St Interpretating Date/Time 08/12/2018 06:39:20
== END 2018-08-11 16:42 | disposition home or self-care (01) ==
LOC: NEPE 07:47 → NEDA 07:47
PROVIDERS: ADMIT Hospitalist; ATTEND Hospitalist